=== PATIENT | female | born 1980 ===

== ENCOUNTER → 2021-10-05 13:50 | Outpatient (BNVA) | payer OTHER, SELFPAY | PROVIDERS: PCP Internal Medicine; Visit Provider Physician Assistant Surgical | DX: Z13.89 Encounter for screening for other disorder (principal) ==

== ENCOUNTER → 2021-10-11 08:30 | Outpatient (BNVA) | payer OTHER, SELFPAY | PROVIDERS: PCP Internal Medicine; Referring Provider Internal Medicine; Visit Provider Physician Assistant Surgical | DX: E66.01 Morbid (severe) obesity due to excess calories (principal); Z68.41 Body mass index [BMI] 40.0-44.9, adult | CPT/HCPCS: 99202 ==

== ENCOUNTER 2021-10-12 15:34 | Outpatient (REF) | payer OTHER, SELFPAY ==
[2021-10-14 14:57] LABS: H Pylori Breath Test Negative (Negative)
== END 2021-10-12 15:35 | disposition home or self-care (01) ==
LOC: CF 15:34
PROVIDERS: PCP Internal Medicine; Referring Provider Internal Medicine; Visit Provider Physician Assistant Surgical
DX: E66.01 Morbid (severe) obesity due to excess calories (principal)
CPT/HCPCS: 36415; 83013

== ENCOUNTER → 2021-10-19 12:37 | Outpatient (REF) | payer OTHER, SELFPAY ==
--- NOTE | ~2021-10-19 | XR_ITS ---
EXAMINATION: XR CHEST CLINICAL INFORMATION: Obese. COMPARISON: None TECHNIQUE: 2 views of the chest were obtained. FINDINGS: No significant abnormality is noted involving the heart, lungs, mediastinum, bony thorax or soft tissues. XR/XR chest 2V IMPRESSION: Unremarkable examination.
--- NOTE | 2021-10-19 12:48 | ECG_ITS ---
Test Reason : obesity Blood Pressure : / mmHG Vent. Rate : 068 BPM Atrial Rate : 068 BPM P-R Int : 144 ms QRS Dur : 082 ms QT Int : 398 ms P-R-T Axes : 017 019 021 degrees QTc Int : 423 ms Normal sinus rhythm Normal ECG No previous ECGs available Referred By: Wisam Smith Electronically Signed By:ELSA ALMANZA MD
[2021-10-19 13:02] LABS: MANUAL DIFF FLAG NO
[2021-10-19 13:29] LABS: Basophils Percent Auto 0.2 % (0-2); Eosinophils Absolute Auto 0.2 X10*3/uL (0.0-0.4); Eosinophils Percent Auto 2.3 % (0-4); Hematocrit 38.7 % (37.0-47.0); Hemoglobin 12.2 g/dl (12.0-16.0); Imm Gran Abs Auto 0.02 X10*3/uL (0.00-0.03); Imm Gran Pct Auto 0.2 % (0.0-0.4); Lymphocytes Absolute Auto 2.5 X10*3/uL (1.2-4.9); Lymphocytes Percent Auto 30.2 % (20-40); Mean Corpuscular HGB Conc 31.5 g/dl (31.0-35.0); Mean Corpuscular Hemoglobin 25.2 pg (27.0-33.0); Monocytes Absolute Auto 0.8 X10*3/uL (0.1-1.2); Monocytes Percent Auto 9.3 % (2-11); Neutrophils Absolute Auto 4.8 x10*3/uL (2.0-8.3); Neutrophils Percent Auto 57.8 % (45-73); Platelet Count 246 X10*3/uL (160-400); Red Blood Count 4.84 X10*6/uL (4.20-5.50); Red Cell Distribution Width 13.5 % (11.0-16.0); White Blood Count 8.2 X10*3/uL (4.8-10.8)
[2021-10-19 13:53] LABS: Estimated Average Glucose 111 mg/dL; Hemoglobin A1c % 5.5 %
[2021-10-19 14:03] LABS: Alanine Aminotransferase 19 U/L (0-31); Alkaline Phosphatase 115 U/L (39-117); Anion Gap 13 (12-20); Aspartate Amino Transferase 19 U/L (5-31); Bilirubin Total 0.8 mg/dL (0.0-1.0); Blood Urea Nitrogen 11 mg/dL (9-16); C Reactive Protein 1.33 mg/dL (< or = 0.50); Calcium 9.5 mg/dL (8.4-10.2); Carbon Dioxide 27 mmol/L (22-29); Chloride 104 mmol/L (96-108); Cholesterol 174 mg/dL; Estimated Glomerular Filt Rate > 60; Glucose Random 84 mg/dL (60-115); HDL Cholesterol 43 mg/dL; Iron 77 mcg/dL (30-160); LDL Cholesterol Calculated 113 mg/dl; Percent Iron Saturation 22 % (15-50); Potassium 3.7 mmol/L (3.3-5.1); Sodium 140 mmol/L (135-145); Total Iron Binding Capacity 346 mcg/dL (228-428); Total Protein 7.6 g/dL (6.5-8.0); Triglycerides 91 mg/dL; Unsaturated Iron Binding 269 ug/dL
[2021-10-19 14:16] LABS: Ferritin 54 ng/mL (10-250); Insulin 14 uU/mL (2-29); TSH reflex Free T4 1.87 uIU/mL (0.32-4.0); Vitamin D 25-OH Total 11.5 ng/mL (>30)
[2021-10-19 14:29] LABS: Folate 16.8 ng/mL (> or = 4.0); Vitamin B12 301 pg/mL (200-900)
[2021-10-20 12:11] LABS: Calcium (PTHI) 9.4 mg/dL (8.6-10.2); PTHI 54 pg/mL (16-77)
[2021-10-23 20:22] LABS: Zinc 68 mcg/dL (60-130)
[2021-10-25 01:52] LABS: Vitamin A 42 mcg/dL (38-98)
[2021-10-25 06:08] LABS: Vitamin B1 9 nmol/L (8-30)
== END ==
LOC: HO.CARD 12:37
PROVIDERS: Visit Provider Physician Assistant Surgical
DX: E66.01 Morbid (severe) obesity due to excess calories (principal)
CPT/HCPCS: 36415; 71046; 80053; 80061; 82306; 82607; 82728; 82746; 83036; 83525; 83540; 83970; 84425; 84443; 84590; 84630; 85025; 86140; 93005

== ENCOUNTER → 2021-10-24 16:00 | Outpatient (BNVA) | payer OTHER, SELFPAY | PROVIDERS: PCP Internal Medicine; Visit Provider Counselor Mental Health | DX: F43.20 Adjustment disorder, unspecified (principal); E66.01 Morbid (severe) obesity due to excess calories | CPT/HCPCS: 90791 ==

== ENCOUNTER → 2021-11-17 08:47 | Outpatient (BNVA) | payer OTHER, SELFPAY | PROVIDERS: PCP Internal Medicine; Visit Provider Dietitian, Registered | DX: E66.01 Morbid (severe) obesity due to excess calories (principal) | CPT/HCPCS: 97802 ==

== ENCOUNTER → 2021-11-22 14:01 | Outpatient (BNVA) | payer OTHER, SELFPAY | PROVIDERS: PCP Internal Medicine; Referring Provider Surgery; Visit Provider Physician Assistant Surgical | DX: E66.9 Obesity, unspecified (principal); Z68.39 Body mass index [BMI] 39.0-39.9, adult | CPT/HCPCS: 99212 ==

== ENCOUNTER 2021-11-28 08:54 | Outpatient (REF) | payer OTHER, SELFPAY ==
--- NOTE | ~2021-11-28 | US_ITS ---
EXAMINATION: US COMPLETE WITH LIVER ELASTOGRAPHY CLINICAL INFORMATION: Severe obesity due to excess calories. COMPARISON: None. TECHNIQUE: Real-time imaging of the abdominal viscera. Noninvasive ultrasound liver fibrosis assessment is performed using Hermilo ElastPQ point quantification shear wave elastography (2D-SWE) with a C5-2 MHz transducer. Multiple elastography samples are obtained. FINDINGS: PANCREAS: Normal. The visualized pancreatic head and body are normal in appearance. The remainder of the pancreas is obscured from visualization by the overlying bowel gas. ABDOMINAL AORTA: The proximal, middle, and distal aortic segments are normal in caliber. INFERIOR VENA CAVA: Visualized portions are normal. LIVER: The liver demonstrates normal size, contour and increased echogenicity. No focal lesion or intrahepatic biliary duct dilatation. The right lobe measures 12.5 cm in length. The left lobe measures 9.4 cm in length. Portal flow is hepatopedal. Shear wave liver elastography median stiffness is 1.39 m/s (reference: normal median stiffness is 1.3 m/s or less). IQR/median stiffness to assess sampling precision is 0.15 (reference: good quality data set is IQR/median stiffness of 0.15 or less). GALLBLADDER: Gallbladder wall thickness is 0.2 cm The gallbladder is physiologically distended without evidence of stones, sludge, polyps, wall thickening or pericholecystic fluid. COMMON BILE DUCT: Normal in caliber measuring 0.2 cm in diameter. RIGHT KIDNEY: Normal. No hydronephrosis. No renal calculi or focal parenchymal lesions. The kidney measures 11.7 cm in maximum dimension. LEFT KIDNEY: Normal. No hydronephrosis. No renal calculi or focal parenchymal lesions. The kidney measures 11.3 cm in maximum dimension. SPLEEN: Normal. The spleen measures 9.8 cm in maximum dimension. FREE FLUID: None. US/US abdomen comp w elastography IMPRESSION: 1. Mild hepatic steatosis without focal lesion. 2. Liver elastography: Median liver stiffness measures 1.39 m/s which corresponds to cACLD (ruled out). 3. Rest of the abdominal ultrasound is unremarkable. REFERENCE: Society of Radiologists in Ultrasound Liver Stiffness Thresholds (2020): LIVER STIFFNESS THRESHOLDS: *Liver Stiffness equal or less than 1.3 m/s: High probability of being normal. *Liver Stiffness less than 1.7 m/s: In the absence of other known clinical signs, rules out compensated advanced chronic liver disease. *Liver Stiffness 1.7-2.1 m/s: Suggestive of compensated advanced chronic liver disease but need further test for confirmation. *Liver Stiffness over 2.1 m/s: Rules in compensated advanced chronic liver disease. *Liver Stiffness over 2.4 m/s: Suggestive of clinically significant portal hypertension. QUALITY OF DATA SET: *IQR/Median value equal or less than 0.15 implies a quality data set. *IQR/Median value over 0.15 implies a poor quality data set. SIGNIFICANT CHANGE FROM PRIOR EXAM: Significant change if liver stiffness measurement is 10% or greater from prior exam. OTHER CONSIDERATIONS: The stage of liver fibrosis may be overestimated in the setting of acute hepatitis, liver inflammation, elevated liver function tests, hepatic vascular congestion, obstructive cholestasis, non-fasting state, and infiltrative diseases such as amyloidosis and lymphoma. In some patients with NAFLD, the liver stiffness thresholds for compensated advanced chronic liver disease may be lower. In causes other than viral hepatitis and NAFLD, liver stiffness thresholds are not well established.
--- NOTE | ~2021-11-28 | FL_ITS ---
EXAMINATION: XR FLUOROSCOPY UPPER GI WITH AIR CLINICAL INFORMATION: Obesity COMPARISON: None TECHNIQUE: Upper GI was performed using thin and thick barium and effervescent granules FINDINGS: Esophageal motility is normal. No hernia or reflux is seen. The stomach and duodenum are normal-appearing. No fold thickening, mass, ulcer or stricture is seen. FLUOROSCOPY TIME: 0.4 minutes DOSE AREA PRODUCT: 5 mott per centimeter squared. 16 saved fluoroscopic images. FL/FL upper GI w air IMPRESSION: Unremarkable examination.
== END 2021-11-28 08:55 | disposition home or self-care (01) ==
LOC: HO.US 08:54
PROVIDERS: Visit Provider Surgery
DX: E66.01 Morbid (severe) obesity due to excess calories (principal)
CPT/HCPCS: 74246; 76705; 76981

== ENCOUNTER → 2021-12-13 14:31 | Outpatient (BNVA) | payer OTHER, SELFPAY | PROVIDERS: PCP Internal Medicine; Referring Provider Internal Medicine; Visit Provider Physician Assistant Surgical | DX: E66.9 Obesity, unspecified (principal); Z68.38 Body mass index [BMI] 38.0-38.9, adult | CPT/HCPCS: 99212 ==

== ENCOUNTER 2022-01-09 13:36 | Outpatient (REF) | payer OTHER, SELFPAY ==
[2022-01-09 14:00] LABS: MANUAL DIFF FLAG NO
[2022-01-09 15:21] LABS: INTERNATIONAL NORM RATIO 1.1 (0.9-1.1); Prothrombin Time 12.2 SEC (10.0-13.1)
[2022-01-09 15:22] LABS: Basophils Percent Auto 0.5 % (0-2); Eosinophils Absolute Auto 0.2 X10*3/uL (0.0-0.4); Eosinophils Percent Auto 2.1 % (0-4); Hematocrit 38.5 % (37.0-47.0); Hemoglobin 12.2 g/dl (12.0-16.0); Imm Gran Abs Auto 0.02 X10*3/uL (0.00-0.03); Imm Gran Pct Auto 0.3 % (0.0-0.4); Lymphocytes Absolute Auto 2.5 X10*3/uL (1.2-4.9); Lymphocytes Percent Auto 31.7 % (20-40); Mean Corpuscular HGB Conc 31.7 g/dl (31.0-35.0); Mean Corpuscular Hemoglobin 25.6 pg (27.0-33.0); Mean Corpuscular Volume 80.7 fL (80.0-98.0); Mean Platelet Volume 9.8 fL (9.4-12.3); Monocytes Absolute Auto 0.8 X10*3/uL (0.1-1.2); Monocytes Percent Auto 10.4 % (2-11); Neutrophils Absolute Auto 4.3 x10*3/uL (2.0-8.3); Platelet Count 250 X10*3/uL (160-400); Red Blood Count 4.77 X10*6/uL (4.20-5.50); Red Cell Distribution Width 13.3 % (11.0-16.0); White Blood Count 7.8 X10*3/uL (4.8-10.8)
[2022-01-09 15:24] LABS: Partial Thromboplastin Time 36.8 SEC (26.0-36.4)
[2022-01-09 15:27] LABS: Estimated Average Glucose 105 mg/dL; Hemoglobin A1c % 5.3 %
[2022-01-09 15:40] LABS: Alanine Aminotransferase 18 U/L (0-31); Alkaline Phosphatase 102 U/L (39-117); Anion Gap 15 (12-20); Aspartate Amino Transferase 17 U/L (5-31); Blood Urea Nitrogen 12 mg/dL (9-16); C Reactive Protein 1.23 mg/dL (< or = 0.50); Calcium 9.2 mg/dL (8.4-10.2); Carbon Dioxide 28 mmol/L (22-29); Chloride 102 mmol/L (96-108); Cholesterol 154 mg/dL; Estimated Glomerular Filt Rate > 60; Glucose Random 70 mg/dL (60-115); HDL Cholesterol 41 mg/dL; LDL Cholesterol Calculated 96 mg/dl; Sodium 141 mmol/L (135-145); Total Protein 7.5 g/dL (6.5-8.0); Triglycerides 89 mg/dL
[2022-01-09 16:00] LABS: Insulin 9 uU/mL (2-29); TSH reflex Free T4 1.83 uIU/mL (0.32-4.0)
== END 2022-01-09 13:37 | disposition home or self-care (01) ==
LOC: HO.LAB 13:36
PROVIDERS: PCP Internal Medicine; Visit Provider Surgery
DX: E66.9 Obesity, unspecified (principal); Z68.38 Body mass index [BMI] 38.0-38.9, adult
CPT/HCPCS: 36415; 80053; 80061; 83036; 83525; 84443; 85025; 85610; 85730; 86140

== ENCOUNTER 2022-01-16 10:08 | Inpatient (IN) | payer OTHER, SELFPAY ==
[2022-01-12 09:19] VITALS: BMI 36.9
--- NOTE | 2022-01-13 14:10 | MHC.SHP ---
Pre-Procedural Eval Section A Date of Service: 01/13/22 The patient is an INPATIENT: Yes The History & Physical has been completed within 30 days and I have reviewed it.: Yes Section B Chief Complaint: obesity Relevant Family History (Specify if Yes): No Relevant Social History: None Present Medications: None Medical History: No relevant PMH History of Previous Operations: No relevant previous surgery Allergies: Allergies Allergy/AdvReac Type Severity Reaction Status Date / Time No Known Allergies Allergy Verified 01/12/22 09:11 Review of Systems Sugical H&P ROS: Negative: Constitution, Cardiovascular, Respiratory, Neurological, Psychiatric, Hem-Onc, Allergic/Immunologic, Gastrointestinal, Genitourinary, Musculoskeletal, Integumentary, Endocrine and Eyes/Ears/Nose/Throat Exam Surgical H&P Exam: Normal: HEENT, Normal: Heart, Normal: Lungs, Normal: Extremities, Normal: Abdomen, Normal: Skin and Normal: Neurological Plan Diagnosis/Plan: Unchanged I have reviewed the history and physical and performed a pertinent physical examination on my patient. No changes have occurred unless specified.
[2022-01-15 14:15] LABS: COVID-19 Test Negative (Negative)
[2022-01-16] VITALS (11 sets, daily range): BP systolic 118–159; BP diastolic 69–89; PULSE 64–76; RESP 15–19; TEMP 36.1–36.6; O2SAT 96–99
[2022-01-16] MEDS: Lactated Ringers 1,000 ML 999 ML IV (11:46)
--- NOTE | 2022-01-16 12:29 | P.CONAN_ITS ---
[facility] Active Problems Active Problems: All Active Problems (Updated 01/12/22 @ 09:23 by Crystal Dowell RN) Morbid obesity (Acute) Adjustment disorder (Acute) Vitamin B12 deficiency (Acute) Obese (Acute) BMI 38.0-38.9,adult (Acute) Past Medical History Medical History (Updated 01/12/22 @ 09:23 by Crystal Dowell RN) History of COVID-19 No pertinent past medical history Family History Family History Mother No problems noted. Father No problems noted. Brother No problems noted. Brother No problems noted. Sister No problems noted. Sister No problems noted. Sister No problems noted. Sister No problems noted. Sister Breast cancer Daughter No problems noted. Daughter No problems noted. Daughter No problems noted. Daughter No problems noted. Son No problems noted. Family history of problems with anesthesia: No Surgical History Surgical History Hx of tubal ligation History of Problems with Anesthesia: No Social History Social History Are you a primary healthcare account manager to a significant other at home: No Do you presently have visiting nurse or other home services: No Alcohol intake: never Patient Tobacco Use Status: Never used Tobacco Second Hand Smoke Exposure: No Use of substances other than those prescribed or required for medical reasons: No Have you been hit, kicked, punched, or otherwise hurt by someone within the past year? If so, by whom?: No Are you DNR?: No Advance Directives: No Advance Directives Information Provided: Yes (Given w/ pre-op instructions) Advance Directives on File: No Recently lost weight without trying: No How much weight loss: 24-33 pounds Eating poorly because of decreased appetite: No Nutrition screen score: 3 Nutrition Risks: No Nutritional Risk Patient : No FDLMP: 12/11/21 : No Poor oral hygiene: No (Intact teeth) Meds Allergies Allergy/AdvReac Type Severity Reaction Status Date / Time No Known Allergies Allergy Verified 01/12/22 09:11 Active Medications: Current Medications Lactated Ringer's (Lr) 1,000 mls @ 50 mls/hr IVCONT .Q20H RODGER Exam Exam Date and Time: January 16, 2022 1229 Height,Weight and Vital Signs: Height 5 ft 7 in Weight 107.048 kg Last Vital Signs Temp 97.5 F 01/16/22 11:22 Pulse 73 01/16/22 11:22 Resp 16 01/16/22 11:22 BP 118/69 01/16/22 11:22 Pulse Ox 96 01/16/22 11:22 O2 Del Method 01/16/22 11:22 Pertinent Lab Results Pertinent Lab Results: Laboratory Tests 01/09/22 01/15/22 13:51 13:30 COVID-19 ([facility]ANI) Negative COVID-19 Clin Com See Note Blood Type O Positive Antibody Screen NEGATIVE Airway Mallampati Class: II TM Dist: >3cm Neck ROM: Full Assessment and Plan Assessment Anesthesia Assessment: Anesthesia Plan Discussed and Chart Reviewed Final Anesthetic Review Family History of Problems with Anesthesia: No History of Problems with Anesthesia: No NPO: Yes ASA Class: III Final Preanesthetic Review: No Changes in Pt Med Stat, Meds/Allgs Chart Reviewed, Consent Obtained/Reviewed and Anes Risks/Benef Reviewed Patient Risk: Intermediate Procedure Risk: Intermediate Anesthetic Plan Anesthetic Plan: GA Disposition: Standard PACU
--- NOTE | 2022-01-16 12:43 | PM.DS ---
DS: Providers Provider Date of Service: 01/17/22 Date of admission: 01/16/22 10:08 Primary care physician: Lyubov Hall MD DS: Summary Hospital Course Hospital Course: ADMITTING DIAGNOSIS: morbid obesity DISCHARGE DIAGNOSIS: same, s/p laparoscopic sleeve gastrectomy PAST SURGICAL HISTORY: PROCEDURE: upper endoscopy, laparoscopic sleeve gastrectomy DISCHARGE SUMMARY: History of Present Illness: The patient is a 41 year-old woman with a BMI of 42.0 kg/m2 and associated co-morbidities as described above. The patient had extensive work-up,lost 24.6lbs preoperatively and was electively scheduled for laparoscopic, possible open sleeve gastrectomy and gastropexy. Risks and complications of the surgery were discussed with the patient in advance, particularly the possibility of , pulmonary embolism, anastomotic leak, bleeding, bowel injury, GERD, cardiac, renal or pulmonary complications. The patient understood all the risks and was in agreement with the surgical plan. Hospital Course: The patient underwent an uneventful laparoscopic sleeve gastrectomy with gastropexy on the day of admission. Postoperatively, the patient was transferred to the surgical floor. The patient received IV Acetaminophen and IV dilaudid for pain control. Patient was started on bariatric phase 1 diet POD #0. On postoperative day one, the patient was feeling well without nausea, vomiting, fevers, or tachycardia. The patient had some mild incisional pain and the abdomen was soft. On the morning of postoperative day one, the patient was continued on 1 ounce of water or ice every half hour. During the day, the patient did fairly well, having some incisional pain, but able to ambulate adequately and to tolerate liquids well. Since the patient is doing well, we decided that the patient was ready to be discharged. The patient was given instructions to follow-up with me next week and to call my office for any fever over 101, persistent abdominal pain, nausea, vomiting, GERD, symptoms of DVT such as calf tenderness, or leg swelling, or pulmonary embolism such as chest pain or shortness of breath. The patient was also instructed to drink 40-60 ounces of liquids per day using the 1-ounce cups. The patient had been given prescriptions for Tylenol for pain, Zofran prn for nausea, and pantoprazole and carafate previously. The patient was encouraged to ambulate and use the incentive spirometer. The patient was allowed to shower, but no baths, and encouraged to stay active at home. All of these instructions were given to the patient personally. All questions were answered and the patient understood all instructions, the instructions were also given to the patient in print. Time Spent with Patient Time attestation: Total time spent providing and/or coordinating discharge services: Discharge coordination time: Less than 30 minutes Quality: Safe Use of Opioids Does Pt have an Active Cancer Diagnosis on the Problem List?: No Quality: Stroke Does the patient have a stroke diagnosis?: No Physical Exam Vital Signs: Vital Signs: Last Vital Signs Temp 97.5 F 01/16/22 11:22 Pulse 73 01/16/22 11:22 Resp 16 01/16/22 11:22 BP 118/69 01/16/22 11:22 Pulse Ox 96 01/16/22 11:22 O2 Del Method 01/16/22 11:22 BMI result Body Mass Index 36.9 DS: Data Data Completed and Pending Labs on day of discharge: Laboratory Results - last 24 hr 01/15/22 13:30 COVID-19 ([facility]ANI) Negative COVID-19 Clin Com See Note Discharge Plan Discharge Anticipated Discharge Date/Time: 01/17/22 10:56 Patient Disposition: Home, Self-Care Discharge Diagnosis: s/p sleeve gastrectomy Referrals: Lyubov Hall MD [Primary Care Provider] - 1 Week Discharge Medications: Continued pantoprazole 40 mg tablet,delayed release (DR/EC) 40 mg PO DAILY Qty: 30 2RF sucralfate 100 mg/mL suspension 10 ml PO BID Qty: 400 2RF ondansetron HCl 4 mg tablet 4 mg PO Q12H Qty: 20 0RF Discontinued cholecalciferol (vitamin D3) 125 mcg (5,000 unit) capsule 125 mcg PO DAILY Qty: 30 2RF polyethylene glycol 3350 [Miralax] 17 gram powder in packet 17 g PO DAILY Qty: 14 0RF Rx Instructions: Do 7 packets, mixing each one with 8oz of water on 01/14/22 and another 7 packets on 01/15/22 mecobalamin (vitamin B12) 1,000 mcg tablet,disintegrating 1,000 mcg sublingual DAILY Qty: 30 2RF Rx Instructions: place tablet under tongue and allow to dissolve for at least30 secs before swallowing Discharge Orders: Discharge Order (Routine); Ordered 01/17/22 Ordered By: Aubrey Lechuga Activity on Discharge: No heavy lifting Stand Alone Forms: Patient Portal Discharge page Care Plan Goals: weight loss Health Concerns: obesity Plan of Treatment: No tub baths, sex or returning to work until discussed at first post op appointment. No exercise, alcohol, tobacco or illegal drug use. Continue to use incentive spirometer hourly while awake. Walk in home for 5- 10 minutes every 2 hours during the first week. Continue phase 1 diet today and start phase 2 diet tomorrow morning. Follow all instructions in the bariatric handbook and call with any questions. 1. Please call your doctor or come back to the emergency room should any new symptoms arise. 2. You will receive a courtesy call from [facility] 24-48 hours after discharge. 3. Activity: abstain from alcohol, practice limited stair climbing, no bending, no driving, no exercise, no illicit substances, no lifting, no sex, no tub bath, no work. 4. Diet: continue as discussed with bariatric team.. 5. Dressing Change/Wound Care: Do not change or remove surgical dressings unless they are wet or soiled. 6. Call your doctor if: - Your temperature exceeds 101.5 F - You experience excessive pain or swelling - You have an unexpected reaction to medication - You have excessive bleeding - You experience continued vomiting/nausea - Your incision begins to separate - Your incision shows signs of infection such as increased redness, swelling, excessive pain, heat, or drainage (light blood or clear fluid is normal) 7. General instructions: No lifting greater than 5 lbs for the next 4 weeks[address] within 24 hours of taking narcotic pain medications. If you do not move your bowels in the next 2 days, please take milk of magnesia over the counter. Please follow the post op diet and do not advance your diet until you are seen in the office in about 2 weeks. Please walk around your home every hour or two to prevent blood clots from forming in your legs. You do not need to wake from sleeping to walk. Please sleep in a bed or couch to prevent kinking at the hips and knees. Please take your incentive spirometer (your lung surveillance director) home with you and use it for the next few days to prevent pneumonias. You may shower, no hot tubs, baths or swimming pools. Please call the office with any questions or concerns such as increasing abdominal pain, fever, chills, shortness of breath, chest pain, leg pain or swelling, or redness or drainage from your incisions. Do not hesitate to contact the office with any questions at . The patient's medical history has been reviewed and they are considered low risk for post op DVT and therefore DVT prophylaxis is not considered necessary. Travel after surgery was reviewed. The patient has not disclosed any travel plans during the first 30 days after surgery and they have been advised that within the first 30 days after surgery any bus, plane, train or car travel over 2 hours in duration is contraindicated due to the possibility of developing blood clots from immobility. Any travel, needs to include periods of ambulation of 10 minutes in duration every 2 hours. The patient was instructed to discuss any plans for travel during this period with their bariatric surgeon. Assessment: stable post op sleeve gastrectomy Discharge Date/Time: 01/17/22 09:22
--- NOTE | 2022-01-16 12:46 | PM.OP ---
Brief Operative Note Date of Service: 01/16/22 Pre-op diagnosis: Severe obesity with comorbidities (see below) Post-op diagnosis: same Procedure: INITIAL PATIENT BMI ON PRESENTATION AT OUR OFFICE: 42.2 kg/m2 LAST BMI BEFORE SURGERY: 38.5 kg/m2 COMORBIDITIES: liver steatosis and liver fibrosis ?The patient presented to the Weight Management Program with significant obesity that was negatively impacting the patient's comorbidities as listed above.? The program is a phased program with a special focus on preoperative medical weight management to promote substantial weight loss and prepare the patients for the second phase of the program: bariatric surgery. The patient participated in an intensive weekly lifestyle ?intervention and exercise program during which the patient ?has lost between the initial office visit and the last preoperative visit 24.6lbs, or 9.42% of initial actual body weight. It was deemed appropriate for the patient to now have bariatric surgery. In light of the current Covid-19 pandemic and the well documented strong association of obesity and increased risk of worse outcomes if infected with Covid-19 (REFERENCES:https://pubmed.ncbi.nlm.nih.gov/49010021/,?https://pubmed.ncbi.nlm.nih.gov/38849399/), any delay in undergoing bariatric surgery may lead to the patient's worsening health condition and increased?risk of more severe Covid-19 disease if infected. In addition a recent?study from [facility] published in [facility] on 05/15/2021 ([email or web address]) found that, among patients with obesity, substantial weight loss achieved with surgery was associated with improved outcomes of COVID-19 infection. The findings suggest that obesity can be a modifiable risk factor for the severity of COVID-19 infection. In addition, the patient met the BMI-criteria for bariatric surgery based on the BMI on initial presentation. The patient should not be penalized for achieving such weight loss because ?it is not sustainable long-term without surgical intervention and it was achieved in preparation for bariatric surgery ?under my direction and based on my published research ([email or web address]).[email or web address] and?[email or web address]://www.soard.org/article/[email or web address]-[email or web address]/pdf) ?that a 10% preoperative weight loss improves long-term weight loss after surgery and reduces perioperative complications.? Insurance carriers such as [facility] have endorsed my recommendations ?and have included in their policies criteria to include a 10% preoperative weight loss requirement. PROCEDURE: Esophago-gastroscopy, laparoscopic lysis of adhesions, laparoscopic sleeve gastrectomy and laparoscopic gastropexy INDICATIONS: This is a 41 year-old female who was electively scheduled for laparoscopic, possibly open sleeve gastrectomy. The risks and complications of the procedure were discussed with the patient in advance, particularly the possibility of ; pulmonary embolism; staple line leak; bleeding; GERD; cardiac, pulmonary, or renal complications; as well as long-term problems such as insufficient weight loss, vitamin deficiency, strictures, or ulcers. The patient understood all the risks, and was in agreement to proceed with surgery. DESCRIPTION OF PROCEDURE: After informed consent was obtained from the patient, the patient was given preoperative antibiotics, and was transferred to the operating room. After successful induction of general anesthesia, pneumatic compression devices were placed on both lower extremities. An upper endoscopy was performed next. The oropharynx and esophagus appeared to be within normal limits. There was no diaphragmatic hernia present consistent with the UGI. The stomach was fully decompressed, the scope was withdrawn and secured in the mid esophagus. The patient was then prepped and draped in the usual sterile manner, and abdominal access was established at the right upper quadrant with the Mikel technique. A 12 mm blunt port was inserted, and the abdomen was insufflated with CO2 to a pressure of 15 mmHg. Under direct visualization, additional ports were placed, specifically two 5 mm Versi-step ports to the left upper quadrant, and a 5 mm Versi-Step port to the right upper quadrant. 1% lidocaine plain was used to infiltrate all port sites as well as all fascia defects. Using the EndoClose suture passer device, I placed a #1 Polysorb tie across the falciform ligament in order to retract it up against the abdominal wall and prevent injury of the ligament with our instruments during the procedure. Following that, the patient was placed in a steep reverse Trendelenburg position. An additional 5 mm port was placed to the right flank for the Mediflex retractor that was used to retract the left lobe of the liver. The gastro-esophageal fat pad was opened with the ultrasonic device (Thunderbeat, Olympus) and the anterior esophagus and hiatus were exposed. The angle of His was opened with the ultrasonic device the fundus of the stomach from any diaphragmatic and splenic attachments. I then opened the gastrocolic ligament between the transverse colon and the greater curvature of the stomach with the ultrasonic device to enter the lesser sac and facilitate the ligation of the short gastric vessels. I started at a mid-point along the greater curvature and using the Thunderbeat, all short gastric vessels were divided all the way to the angle of His until the left michael was completely dissected at its entirety. I then divided the gastro-colic ligament distally to a distance of about 3-4 cm proximal to the pylorus. There were extensive congenital adhesions between the pancreas and posterior gastric wall. Those were lysed completely with the ultrasonic device. Adhesiolysis took approximately 45 min to complete. The stomach was then divided transversely with one Endo CARYN-45 purple, one CARYN-60 purple load and three CARYN-60 articulating orange loads using the AEON stapler and loads. Every effort was made that the gastric sleeve had a tubular shape and an even caliber throughout. Once the sleeve resection was completed, the staple line of the gastric sleeve was reinforced with Hemoclips. The resected stomach was retrieved without difficulty from the Mikel port. A gastropexy was then performed in order to prevent postoperative GERD and partial gastric volvulus. Several interrupted 2.0 Surgidac sutures were placed between the sleeve's staple line and the previously divided greater omentum and gastro-colic ligament using the Endo-Stitch device. ?An upper endoscopy was performed. There was no narrowing at the GE junction. The scope was easily advanced all the way to the pylorus which was clearly visualized. There was no narrowing anywhere and the sleeve's caliber was even throughout. The sleeve's staple line was inspected and there was no evidence of ischemia, bleeding or dehiscence. At that point the gastroscope was withdrawn from the patient?s mouth while we were decompressing the bowel and the stomach from any remaining air. I looked into the lesser sac to see how the sleeve was situating and it was situating well. There was no bleeding from the staple line, spleen, or short gastric vessels. The Mediflex retractor was removed, and the undersurface of the liver was inspected and there was no bleeding. The patient was placed in supine position. I closed the fascial defect of the 12 mm port site with a figure of eight #1 Polysorb suture. Then 60cc of Ropivacaine plain with 10 mg of Dexamethasone were used to infiltrate the fascial closure as well as all skin incisions. A total of 7ml of Zynrelef was applied in the Mikel wound. At this point, the abdomen was deflated, all ports were removed under direct vision, and no bleeding was noted from any of the port sites. The skin incisions were irrigated with saline and were closed with 4-0 absorbable monofilament sutures. Steri-Strips and OpSites were used to cover all incisions. The patient was extubated and was transferred in stable condition to the recovery room for further care. I was present and performed all thorpe parts of the procedure. Ms. Alvares was the medical lab assistant. There were no residents to assist with this case. Hector Lechuga MD, PhD, FACS Surgeon: Aubrey Lechuga MD Anesthesia: GETA, local and other (TAP block and 7ml Zynrelef) Was an Regional Transfer Liaison used for this Procedure?: No Regional Transfer Liaison: Nanette Alvares Estimated blood loss (mL): 10 IV fluids (mL): 3,000 Urine output (mL): 0 (No Lara to record) Pathology: other (Stomach) Condition: stable Disposition: PACU
--- NOTE | 2022-01-16 12:49 | PM.PNGS ---
Subjective Subjective Date of Service: 01/17/22 Interval history: Patient has mild incisional pain, but was able to ambulate and use the incentive spirometer. She is tolerating phase 1 bariatric diet Physical Exam Vital Signs: Vital Signs: Last Vital Signs Temp 97.5 F 01/16/22 11:22 Pulse 73 01/16/22 11:22 Resp 16 01/16/22 11:22 BP 118/69 01/16/22 11:22 Pulse Ox 96 01/16/22 11:22 O2 Del Method 01/16/22 11:22 BMI result Body Mass Index 36.9 GI: Inspection: Yes normal to inspection, Yes incision (dry, clean and intact) and Yes obesity Extrem: Right lower extremity: normal to inspection (no calf tenderness) Left lower extremity: normal to inspection (no calf tenderness) Objective Data Active Medications Hydromorphone HCl (Hydromorphone Hcl 0.5 Mg/0.5 Ml Syringe) 0.5 mg IVPUSH Q5M PRN; Protocol PRN Reason: Pain, Severe (Pain Scale 7-10) Lactated Ringer's (Lr) 1,000 mls @ 50 mls/hr IVCONT .Q20H RODGER Promethazine HCl 12.5 mg/ (Sodium Chloride) 50.5 mls @ 202 mls/hr IV ONCE PRN PRN Reason: Nausea and Vomiting Ondansetron HCl (Ondansetron Hcl 4 Mg/2 Ml Vial) 4 mg IVPUSH ONCE PRN PRN Reason: Nausea and Vomiting Labs CBC & Chem 7: 01/17/22 06:06 01/17/22 06:06 Labs: Laboratory Results - last 24 hr 01/15/22 13:30 COVID-19 (JANI) Negative COVID-19 Clin Com See Note Procedures Date of Service Date of Service: 01/17/22 Progress Note: A&P Assessment and plan (1) Steatosis, liver: Status: Acute (2) Liver fibrosis: Status: Acute (3) S/P laparoscopic sleeve gastrectomy: Status: Acute (4) Congenital intra-abdominal adhesions: Status: Acute Time Spent With Patient Time: Total time spent is greater than 50% in coordination of care (as documented) at patient's floor/unit and/or counseling patient: Quality Stroke Does the patient have a stroke diagnosis?: No VTE Prior VTE?: No VTE Risk Level:: Surgical - moderate VTE Device Contraindication: N/A - Device Ordered VTE Drug Contraindication: Treatment Not Indicated
--- NOTE | 2022-01-16 15:51 | PHA.MEDREC ---
Pharmacy Consult ? Medication Reconciliation Pharmacy has completed the medication reconciliation. Reviewed med rec done by nursing
[2022-01-16] MEDS: HYDROmorphone HCl 0.5 MG/0.5 ML SYRINGE IVPUSH (15:56)
[2022-01-16 15:58] LABS: Hematocrit 38.1 % (37.0-47.0); Hemoglobin 12.3 g/dl (12.0-16.0)
[2022-01-16] MEDS: Lactated Ringers 1,000 ML 100 ML IVCONT (16:04)
[2022-01-16 16:20] LABS: Anion Gap 17 (12-20); Blood Urea Nitrogen 9 mg/dL (9-16); Calcium 8.9 mg/dL (8.4-10.2); Carbon Dioxide 22 mmol/L (22-29); Chloride 104 mmol/L (96-108); Creatinine Clr Calc Pharmacy 130.7; Estimated Glomerular Filt Rate > 60; Glucose Random 99 mg/dL (60-115); Sodium 139 mmol/L (135-145)
[2022-01-16] MEDS: ceFAZolin Sodium/Dextrose,Iso 2 GM/50 ML PIGGYBACK IV (19:10)
[2022-01-16] MEDS: Famotidine/PF 20 MG/2 ML VIAL IVPUSH (20:01)
[2022-01-16] MEDS: 0.9 % Sodium Chloride Flush 3 ML SYRINGE IVFLUSH (20:01)
[2022-01-16] MEDS: ondansetron HCL 4 MG/2 ML VIAL IVPUSH (20:34)
[2022-01-17] VITALS: BP 131/84; PULSE 71; RESP 18; TEMP 36.2; O2SAT 97
[2022-01-17] MEDS: Lactated Ringers 1,000 ML 100 ML IVCONT (01:53)
[2022-01-17 03:43] VITALS: BP 133/87; PULSE 77; RESP 18; TEMP 37; O2SAT 96
[2022-01-17] MEDS: ondansetron HCL 4 MG/2 ML VIAL IVPUSH (05:19)
[2022-01-17 06:24] LABS: MANUAL DIFF FLAG NO
[2022-01-17 06:42] LABS: Anion Gap 17 (12-20); Blood Urea Nitrogen 7 mg/dL (9-16); Calcium 8.9 mg/dL (8.4-10.2); Carbon Dioxide 21 mmol/L (22-29); Chloride 103 mmol/L (96-108); Creatinine Clr Calc Pharmacy 144.8; Estimated Glomerular Filt Rate > 60; Glucose Random 103 mg/dL (60-115); Potassium 3.9 mmol/L (3.3-5.1); Sodium 137 mmol/L (135-145)
[2022-01-17 06:45] LABS: Basophils Percent Auto 0.1 % (0-2); Hematocrit 36.7 % (37.0-47.0); Hemoglobin 11.9 g/dl (12.0-16.0); Imm Gran Abs Auto 0.02 X10*3/uL (0.00-0.03); Imm Gran Pct Auto 0.3 % (0.0-0.4); Lymphocytes Absolute Auto 1.2 X10*3/uL (1.2-4.9); Lymphocytes Percent Auto 15.5 % (20-40); Mean Corpuscular HGB Conc 32.4 g/dl (31.0-35.0); Mean Corpuscular Hemoglobin 25.4 pg (27.0-33.0); Mean Corpuscular Volume 78.4 fL (80.0-98.0); Mean Platelet Volume 9.4 fL (9.4-12.3); Monocytes Absolute Auto 0.5 X10*3/uL (0.1-1.2); Monocytes Percent Auto 6.6 % (2-11); Neutrophils Percent Auto 77.5 % (45-73); Platelet Count 218 X10*3/uL (160-400); Red Blood Count 4.68 X10*6/uL (4.20-5.50); Red Cell Distribution Width 13.2 % (11.0-16.0); White Blood Count 7.7 X10*3/uL (4.8-10.8)
--- NOTE | 2022-01-17 06:54 | HO.POSTANES ---
Post Anesthesia Evaluation Post Anesthesia Evaluation Vital Signs: Vital Signs Temp Pulse Resp BP Pulse Ox O2 Del Method 01/17/22 03:43 98.6 F 77 18 133/87 96 Room Air 01/17/22 00:00 97.2 F 71 18 131/84 97 Room Air 01/16/22 20:00 64 18 121/70 99 Room Air Anesthesia: General Endotracheal-GETA Mental Status: Awake Pain Control: Satisfactory Nausea/Vomiting: None Hydration: Adequate Anesthesia-Related Issues: No Anes. Related Issues
[2022-01-17 07:16] VITALS: BP 142/61; PULSE 84; RESP 17; TEMP 37.1; O2SAT 96
[2022-01-17] MEDS: Famotidine/PF 20 MG/2 ML VIAL IVPUSH (07:29)
--- NOTE | 2022-01-17 08:47 | MHC.CM.PN ---
PATIENT LIVES WITH FAMILY [facility] [employer]ITY IS [employer]ED DENIES USE OF DME OR RECEIVING HOME SERVICES HCP EDUCATED, DECLINED AT THIS TIME JASMIN CANTOR'Eduardo X3 NOEMI PXCP FROM [facility] IN [place] WILL TRANSPORT D/C PLAN: HOME SELF-CARE
--- NOTE | 2022-01-17 08:49 | MHC.CM.PN ---
PATIENT HAS BEEN MEDICALLY CLEARED FOR DISCHARGE TODAY; DISCHARGE DISPOSITION IS HOME SELF-CARE. SPOUSE TO TRANSPORT.
== END 2022-01-17 09:22 | disposition home or self-care (01) | DRG 403 ==
LOC: HO.SSSA 12:58 → HO.S3 15:43
PROVIDERS: Physician Assistant; Physician Assistant Surgical; Admitting Provider Surgery; PCP Internal Medicine; Visit Provider Surgery
PROC: 0DB64Z3 Excision of Stomach, Percutaneous Endoscopic Approach, Vertical (ICD-10-PCS; CPT 43845; principal; 2022-01-16 13:00)
DX: E66.01 Morbid (severe) obesity due to excess calories (principal); K74.00 Hepatic fibrosis, unspecified; Q43.3 Congenital malformations of intestinal fixation; K76.0 Fatty (change of) liver, not elsewhere classified; Z20.822 Contact with and (suspected) exposure to COVID-19; Z86.16 Personal history of COVID-19; Z98.51 Tubal ligation status; Z68.38 Body mass index [BMI] 38.0-38.9, adult
CPT/HCPCS: 36415; 80048; 85014; 85018; 85025; 86850; 86900; 86901; 87635; 88307; 88342; A4649; C9088; J0131; J0690; J1100; J1170; J2250; J2405; J2795; J3010

== ENCOUNTER → 2022-02-07 09:34 | Outpatient (BNVA) | payer OTHER, SELFPAY | PROVIDERS: PCP Internal Medicine; Visit Provider Physician Assistant Surgical | DX: E66.9 Obesity, unspecified (principal); Z68.34 Body mass index [BMI] 34.0-34.9, adult; Z98.84 Bariatric surgery status | CPT/HCPCS: 99212 ==

== ENCOUNTER → 2022-03-12 13:49 | Outpatient (BNVA) | payer OTHER, SELFPAY | PROVIDERS: PCP Internal Medicine; Referring Provider Physician Assistant Surgical; Visit Provider Dietitian, Registered | DX: E66.9 Obesity, unspecified (principal); Z98.84 Bariatric surgery status; Z71.3 Dietary counseling and surveillance | CPT/HCPCS: 97803 ==

== ENCOUNTER → 2022-04-24 13:07 | Outpatient (BNVA) | payer OTHER, SELFPAY | PROVIDERS: PCP Internal Medicine; Visit Provider Physician Assistant Surgical | DX: E66.9 Obesity, unspecified (principal); Z68.30 Body mass index [BMI] 30.0-30.9, adult; Z98.84 Bariatric surgery status | CPT/HCPCS: 99212 ==

== ENCOUNTER → 2022-08-03 14:36 | Outpatient (BNVA) | payer OTHER, SELFPAY | PROVIDERS: PCP Internal Medicine; Visit Provider Physician Assistant Surgical | DX: E66.9 Obesity, unspecified (principal); Z68.28 Body mass index [BMI] 28.0-28.9, adult | CPT/HCPCS: 99212 ==

== ENCOUNTER 2022-08-09 14:58 | Outpatient (REF) | payer OTHER, SELFPAY ==
[2022-08-09 15:29] LABS: MANUAL DIFF FLAG NO
[2022-08-09 15:42] LABS: Basophils Percent Auto 0.4 % (0-2); Eosinophils Absolute Auto 0.2 X10*3/uL (0.0-0.4); Eosinophils Percent Auto 2.3 % (0-4); Hematocrit 38.1 % (37.0-47.0); Hemoglobin 12.1 g/dl (12.0-16.0); Imm Gran Abs Auto 0.02 X10*3/uL (0.00-0.03); Imm Gran Pct Auto 0.3 % (0.0-0.4); Lymphocytes Absolute Auto 2.6 X10*3/uL (1.2-4.9); Lymphocytes Percent Auto 34.4 % (20-40); Mean Corpuscular HGB Conc 31.8 g/dl (31.0-35.0); Mean Corpuscular Hemoglobin 25.9 pg (27.0-33.0); Mean Corpuscular Volume 81.6 fL (80.0-98.0); Mean Platelet Volume 8.8 fL (9.4-12.3); Monocytes Absolute Auto 0.7 X10*3/uL (0.1-1.2); Monocytes Percent Auto 8.8 % (2-11); Neutrophils Percent Auto 53.8 % (45-73); Platelet Count 202 X10*3/uL (160-400); Red Blood Count 4.67 X10*6/uL (4.20-5.50); Red Cell Distribution Width 12.7 % (11.0-16.0); White Blood Count 7.4 X10*3/uL (4.8-10.8)
[2022-08-09 16:28] LABS: Anion Gap 11 (12-20); Blood Urea Nitrogen 14 mg/dL (9-16); C Reactive Protein 0.33 mg/dL (< or = 0.50); Calcium 9.1 mg/dL (8.4-10.2); Carbon Dioxide 29 mmol/L (22-29); Chloride 106 mmol/L (96-108); Cholesterol 158 mg/dL; Estimated Glomerular Filt Rate > 60; Glucose Random 86 mg/dL (60-115); HDL Cholesterol 48 mg/dL; Iron 51 mcg/dL (30-160); LDL Cholesterol Calculated 96 mg/dl; Percent Iron Saturation 19 % (15-50); Potassium 3.8 mmol/L (3.3-5.1); Sodium 142 mmol/L (135-145); Total Iron Binding Capacity 269 mcg/dL (228-428); Triglycerides 71 mg/dL; Unsaturated Iron Binding 218 ug/dL
[2022-08-09 16:59] LABS: Ferritin 59 ng/mL (10-250); Folate 7.4 ng/mL (> or = 4.0); Insulin 9 uU/mL (2-29); Vitamin B12 316 pg/mL (200-900); Vitamin D 25-OH Total 22.8 ng/mL (>30)
[2022-08-10 16:23] LABS: Calcium (PTHI) 9.2 mg/dL (8.6-10.2); PTHI 50 pg/mL (16-77)
[2022-08-14 00:04] LABS: Zinc 55 mcg/dL (60-130)
[2022-08-15 06:08] LABS: Vitamin B1 10 nmol/L (8-30)
[2022-08-15 17:39] LABS: Vitamin A 37 mcg/dL (38-98)
== END 2022-08-09 14:59 | disposition home or self-care (01) ==
LOC: HO.LAB 14:58
PROVIDERS: Visit Provider Physician Assistant Surgical
DX: E66.9 Obesity, unspecified (principal); Z98.84 Bariatric surgery status
CPT/HCPCS: 36415; 80048; 80061; 82306; 82607; 82728; 82746; 83525; 83540; 83970; 84425; 84443; 84590; 84630; 85025; 86140

== ENCOUNTER → 2022-11-21 15:18 | Outpatient (BNVA) | payer OTHER, SELFPAY | PROVIDERS: PCP Internal Medicine; Visit Provider Physician Assistant Surgical ==

== ENCOUNTER 2022-12-25 01:03 | Inpatient (IN) | payer OTHER, SELFPAY ==
[2022-12-25] VITALS (15 sets, daily range): BP systolic 101–140; BP diastolic 48–108; PULSE 53–69; RESP 14–20; TEMP 36–36.9; O2SAT 96–100; BMI 25.5
--- NOTE | ~2022-12-25 | MR_ITS ---
EXAMINATION: MR ABDOMEN WITHOUT CONTRAST CLINICAL INFORMATION: Elevated LFTs. COMPARISON: Abdominal ultrasound 12/25/2022 CT abdomen/pelvis 12/25/2022 TECHNIQUE: MR abdomen is performed without gadolinium contrast. FINDINGS: LUNG BASES: The visualized lung bases are unremarkable. LIVER, GALLBLADDER, AND BILIARY TREE: The liver is normal in size and contour. No hepatic steatosis. No focal hepatic lesion. The common duct measures 5 mm at the bryan hepatis. No intrahepatic biliary ductal dilatation. There is fluid and stranding in the gallbladder fossa. The gallbladder is not well visualized. There is susceptibility artifact at the bryan hepatis. PANCREAS: No ductal dilatation. SPLEEN: Not enlarged. ADRENAL GLANDS: No adrenal mass. KIDNEYS AND URETERS: The kidneys are symmetric in size. No hydronephrosis or perinephric stranding. GASTROINTESTINAL TRACT: Status post sleeve gastrectomy. Imaged loops of small and large bowel are not obstructed. LYMPH NODES: No bulky abdominal lymphadenopathy. VASCULAR: Normal caliber abdominal aorta. MR/MR MRCP IMPRESSION: Fluid and stranding in the gallbladder fossa. No organized fluid collection. Susceptibility artifact at the bryan hepatis is suggestive of prior cholecystectomy. Advise correlation with surgical history.
--- NOTE | ~2022-12-25 | US_ITS ---
EXAMINATION: US ABDOMEN LIMITED gallbladder CLINICAL INFORMATION: Right upper quadrant pain. COMPARISON: Prior study 2021 TECHNIQUE: Real-time imaging of the right upper quadrant abdominal viscera. FINDINGS: GALLBLADDER: There are multiple gallstones. The gallbladder is physiologically distended without evidence of sludge, polyps, wall thickening or pericholecystic fluid. No tenderness reported by patient compressing on the gallbladder. Gallbladder wall thickness 0.3 cm. No pericholecystic fluid. COMMON BILE DUCT: Normal in caliber measuring 0.4 cm in diameter. FREE FLUID: None. US/US abdomen limited IMPRESSION: Cholelithiasis without ultrasound evidence of acute cholecystitis.
--- NOTE | ~2022-12-25 | CT_ITS ---
EXAMINATION: CT ABDOMEN AND PELVIS WITH CONTRAST CLINICAL INFORMATION: Right upper quadrant pain. COMPARISON: None available. TECHNIQUE: Multidetector volumetric images were obtained from the superior aspect of the liver through the pubic symphysis following administration 85 mL of Omnipaque 350 intravenous contrast. Sagittal and coronal reformatted images were obtained on the technologist's workstation. Oral contrast: No This CT examination was performed using dose optimization techniques as appropriate, variously including the following: *Automated exposure control *Adjustment of mA and/or kV according to patient size (this includes techniques or standardized protocols for targeted exams where dose is matched to indication/reason for exam; i.e. extremities or head) *Use of iterative reconstruction technique DLP: 499 mGy-cm FINDINGS: LUNG BASES: The visualized lung bases are unremarkable. LIVER, GALLBLADDER, AND BILIARY TREE: The liver is normal in size, shape, and attenuation. No focal hepatic lesion or biliary ductal dilatation is present. A few small gallstones are noted. PANCREAS: Unremarkable. SPLEEN: Unremarkable. ADRENAL GLANDS: Unremarkable. KIDNEYS AND URETERS: The kidneys are normal in size, shape, and attenuation. No hydronephrosis, hydroureter, or calculi seen. No perinephric stranding. BLADDER: Unremarkable. GASTROINTESTINAL TRACT: The small and large bowel are unremarkable. There has been a prior gastric sleeve procedure. The appendix is unremarkable. ABDOMINAL WALL: No significant hernia is appreciated. LYMPH NODES: Normal. VASCULAR: Unremarkable. PELVIC VISCERA: Unremarkable. OSSEOUS STRUCTURES: Unremarkable. CT/CT abdomen pelvis w IV con IMPRESSION: Cholelithiasis. No acute intra-abdominal process. Fleischner guidelines were followed.
--- NOTE | 2022-12-25 01:58 | MHC.EDTECH ---
PATIENT VITALS SIGN TAKEN ,BLOOD DRAWN AND SENT TO LAB ,WAITING FOR URINE SAMPLE ,PATIENT SAID SHE IS UNABLE TO VOID AT THIS TIME ,LORETTA HOWE AWARE .
[2022-12-25 02:04] LABS: Hematocrit 38.3 % (37.0-47.0); Hemoglobin 12.3 g/dl (12.0-16.0); Mean Corpuscular HGB Conc 32.1 g/dl (31.0-35.0); Mean Corpuscular Hemoglobin 26.1 pg (27.0-33.0); Mean Corpuscular Volume 81.1 fL (80.0-98.0); Mean Platelet Volume 8.9 fL (9.4-12.3); Platelet Count 209 X10*3/uL (160-400); Red Blood Count 4.72 X10*6/uL (4.20-5.50); Red Cell Distribution Width 12.2 % (11.0-16.0); White Blood Count 8.9 X10*3/uL (4.8-10.8)
[2022-12-25 02:15] LABS: Alanine Aminotransferase 47 U/L (0-31); Alkaline Phosphatase 106 U/L (39-117); Anion Gap 11 (12-20); Aspartate Amino Transferase 114 U/L (5-31); Blood Urea Nitrogen 15 mg/dL (9-16); Calcium 9.6 mg/dL (8.4-10.2); Carbon Dioxide 27 mmol/L (22-29); Chloride 107 mmol/L (96-108); Creatinine Clr Calc Pharmacy 103.7; Estimated Glomerular Filt Rate > 60; Glucose Random 90 mg/dL (60-115); Lipase 142 U/L (8-78); Potassium 3.5 mmol/L (3.3-5.1); Sodium 141 mmol/L (135-145); Total Protein 7.7 g/dL (6.5-8.0)
--- NOTE | 2022-12-25 02:21 | ED_ITS ---
HPI - Abdominal Pain General Chief Complaint: Abdominal Pain Stated Complaint: Gallstones Time Seen by Provider: 12/25/22 01:57 Source: patient, family and old records reviewed Mode of arrival: ambulatory Limitations: no limitations History of Present Illness HPI narrative: 42 yo female with hx of gastric sleeve dx with gallstones at [facility] last night via US told to see surgery sent home with PO morphine called Wisam Smith yeserday as she's s/p gastric sleeve one year ago. She will see Dr. Nicole on Saturday but her pain re-occured tonight after yun soup took PO morphine and didn't go away. US showed stones but no infection at [facility]. She has nausea but no vomiting. No fevers or diarrhea. MD elicited complaint: abdominal pain Pertinent past history: other (gastric sleeve) Onset (ago): day(s) (2) Pain Consistency: intermittent Location: RUQ Severity: severe Quality: stabbing Radiation: R flank Migration to: no migration Exacerbating factors: eating Relieving factors: nothing Associated symptoms: nausea Treatments prior to arrival: other (PO morphine) Related Data Home Medications Medication Instructions Recorded Confirmed Leo +D PO BID 02/23/22 11/21/22 fusion MVI PO DAILY 04/24/22 11/21/22 Allergies Allergy/AdvReac Type Severity Reaction Status Date / Time No Known Allergies Allergy Verified 08/03/22 14:42 Review of Systems Review of Systems Constitutional : No Weight loss, No Fever, No Chills ENT/Mouth : No sore throat, No Rhinorrhea Eyes: No Swelling, No Redness Cardiovascular : No Chest Pain, No SOB, NoEdema Respiratory : No Cough, No Sputum, No Wheezing Gastrointestinal : Positive Nausea, no Vomiting, no Diarrhea, positive abdominal Pain, No Hematochezia, No Melena Genitourinary : No Dysuria, No Urinary Frequency, No Hematuria, No Urgency Musculoskeletal : No joint pain, No Myalgias, No Joint Swelling Skin : No Skin Lesions, No rash Neuro : No Weakness, No Numbness, No Dizziness, No Headache Psych : No Anxiety/Panic, No Depression Heme/Lymph: No Bruising, No Lymphadenopathy Endocrine : No Polyuria, No Polydipsia All other systems reviewed and are negative. [facility] Past Medical History Attestation statement: The following information was validated with the patient. Medical History Adjustment disorder BMI 38.0-38.9,adult History of COVID-19 No pertinent past medical history Obese Vitamin B12 deficiency Surgical History Hx of tubal ligation S/P laparoscopic sleeve gastrectomy Family History Family History Mother No problems noted. Father No problems noted. Brother No problems noted. Brother No problems noted. Sister No problems noted. Sister No problems noted. Sister No problems noted. Sister No problems noted. Sister Breast cancer Daughter No problems noted. Daughter No problems noted. Daughter No problems noted. Daughter No problems noted. Son No problems noted. Social History Social History Are you a primary customer care assistant to a significant other at home: No Do you presently have visiting nurse or other home services: No Alcohol intake: never Patient Tobacco Use Status: Never used Tobacco Smoked in Last 30 Days: No Second Hand Smoke Exposure: No Use of substances other than those prescribed or required for medical reasons: No Advance Directives: No Advance Directives Information Provided: Yes Patient : No service: No Current occupational status: employed Physical Exam ED Vital Signs: Vital Signs - 24 hr 12/25/22 01:34 12/25/22 01:52 12/25/22 04:00 Temperature 98 F 97.6 F 97.6 F Pulse Rate 68 67 55 Respiratory Rate 20 16 16 Blood Pressure 115/75 117/62 101/48 L Pulse Oximetry 100 98 98 Oxygen Delivery Method Room Air Room Air Room Air 12/25/22 06:00 Temperature 97.9 F Pulse Rate 53 Respiratory Rate 16 Blood Pressure 108/66 Pulse Oximetry 98 Oxygen Delivery Method Room Air BMI result Body Mass Index 25.5 Appearance: Alert. Oriented X3. No acute distress. Eyes: Pupils equal, round and reactive to light. ENT: Pharynx normal. Neck: Normal inspection. Neck supple. CVS: Normal heart rate and rhythm. Pulses normal. Respiratory: No respiratory distress. Breath sounds normal. Abdomen: Soft and mild RUQ ttp no rebound , neg jimenez's sign. Skin: Skin warm and dry. Normal skin color. Normal skin turgor. Extremities: No lower extremity edema. No calf ttp Neuro: Oriented X 3. No motor deficit. No sensory deficit. Course Course Course Narrative: repeat calls to radiology Reevaluation(s) Reevaluation #1: 2nd dose of IV dilaudid for pain Medical Decision Making Medical Decision Making [facility] Narrative: 42 yo female hx of gastric sleeve dx with gallstones at [facility] last night via US for RUQ and R flank pain sent home with PO morphine. Started with pain for 2 hours in RUQ and R flank pain - at this time given sleeve history will obtain basic labs, CT scan for choledocholithiasis, IV dilaudid for pain, IVF - likely admit will talk to bariatric surgery after CT scan Differential Diagnosis Differential Diagnoses: The differential diagnosis associated with the presentation includes pancreatitis, renal colic, gastritis, adhesions, internal hernia, biliary colic, choledocholithiasis Admission/Observation Consideration of admission/observation: Escalation of care including admission/observation considered repeat doses of pain medications plan to admit Consult Healthcare Provider Management of the patient was discussed with: Hydrogeology Professor Giorgio - SUJIT , will evaluate in the ED and make plan for patient Lab Data [facility] Lab Attestation statement: I reviewed the patient's lab results. 12/25/22 01:56 12/25/22 01:56 Labs: Lab Results 12/25/22 12/25/22 12/25/22 Range/Units 01:56 01:56 02:21 WBC 8.9 8.0 (4.8-10.8) X10*3/uL RBC 4.72 4.66 (4.20-5.50) X10*6/uL Hgb 12.3 12.2 (12.0-16.0) g/dl Hct 38.3 37.8 (37.0-47.0) % MCV 81.1 81.1 (80.0-98.0) fL MCH 26.1 L 26.2 L (27.0-33.0) pg MCHC 32.1 32.3 (31.0-35.0) g/dl RDW 12.2 12.3 (11.0-16.0) % Plt Count 209 205 (160-400) X10*3/uL MPV 8.9 L 8.8 L (9.4-12.3) fL Immature Gran % (Auto) 0.3 (0.0-0.4) % Neut % (Auto) 56.7 (45-73) % Lymph % (Auto) 29.7 (20-40) % [place] % (Auto) 11.5 H (2-11) % Eos % (Auto) 1.4 (0-4) % Baso % (Auto) 0.4 (0-2) % Lymph # (Auto) 2.4 (1.2-4.9) X10*3/uL [place] # (Auto) 0.9 (0.1-1.2) X10*3/uL Eos # (Auto) 0.1 (0.0-0.4) X10*3/uL Baso # (Auto) 0.0 (0.0-0.2) X10*3/uL Abs Immat Gran (auto) 0.02 (0.00-0.03) X10*3/uL Absolute Neuts (auto) 4.5 (2.0-8.3) x10*3/uL Absolute Nucleated RBC 0.000 0.000 (0.0-0.012) X10*3/uL Nucleated RBC % (auto) 0.0 0.0 (0.0-0.2) /100WBC PT (11.1-13.3) SEC INR (0.9-1.1) Sodium 141 (135-145) mmol/L Potassium 3.5 (3.3-5.1) mmol/L Chloride 107 (96-108) mmol/L Carbon Dioxide 27 (22-29) mmol/L Anion Gap 11 L (12-20) BUN 15 (9-16) mg/dL Creatinine 0.72 (0.5-1.4) mg/dL Estim Creat Clear Calc 103.7 Estimated GFR > 60 Random Glucose 90 (60-115) mg/dL Calcium 9.6 (8.4-10.2) mg/dL Magnesium (1.6-2.6) mg/dL Total Bilirubin 1.0 (0.0-1.0) mg/dL Direct Bilirubin (0.0-0.5) mg/dL AST 114 H (5-31) U/L ALT 47 H (0-31) U/L Alkaline Phosphatase 106 (39-117) U/L Total Protein 7.7 (6.5-8.0) g/dL Albumin 4.0 (3.5-5.0) g/dL Lipase 142 H (8-78) U/L Beta HCG, Quant mIU/mL Urine Color Urine Appearance Urine pH Ur Specific [place] Urine Protein Urine Glucose (UA) Urine Ketones Urine Blood Urine Nitrite Ur Leukocyte Esterase Urine RBC (0-2) /HPF Urine WBC (0-5) /HPF Ur Squamous Epith Cells (0-2) /HPF Calcium Oxalate Crystal Urine Bacteria (None Seen) Hyaline Casts (0-2) /LPF Urine Test (NEGATIVE) 12/25/22 12/25/22 12/25/22 Range/Units 02:21 02:21 03:15 WBC (4.8-10.8) X10*3/uL RBC (4.20-5.50) X10*6/uL Hgb (12.0-16.0) g/dl Hct (37.0-47.0) % MCV (80.0-98.0) fL MCH (27.0-33.0) pg MCHC (31.0-35.0) g/dl RDW (11.0-16.0) % Plt Count (160-400) X10*3/uL MPV (9.4-12.3) fL Immature Gran % (Auto) (0.0-0.4) % Neut % (Auto) (45-73) % Lymph % (Auto) (20-40) % [place] % (Auto) (2-11) % Eos % (Auto) (0-4) % Baso % (Auto) (0-2) % Lymph # (Auto) (1.2-4.9) X10*3/uL [place] # (Auto) (0.1-1.2) X10*3/uL Eos # (Auto) (0.0-0.4) X10*3/uL Baso # (Auto) (0.0-0.2) X10*3/uL Abs Immat Gran (auto) (0.00-0.03) X10*3/uL Absolute Neuts (auto) (2.0-8.3) x10*3/uL Absolute Nucleated RBC (0.0-0.012) X10*3/uL Nucleated RBC % (auto) (0.0-0.2) /100WBC PT 12.9 (11.1-13.3) SEC INR 1.1 (0.9-1.1) Sodium 141 (135-145) mmol/L Potassium 3.7 (3.3-5.1) mmol/L Chloride 107 (96-108) mmol/L Carbon Dioxide 25 (22-29) mmol/L Anion Gap 13 (12-20) BUN 14 (9-16) mg/dL Creatinine 0.69 (0.5-1.4) mg/dL Estim Creat Clear Calc 108.2 Estimated GFR > 60 Random Glucose 90 (60-115) mg/dL Calcium 9.4 (8.4-10.2) mg/dL Magnesium 2.2 (1.6-2.6) mg/dL Total Bilirubin 1.0 (0.0-1.0) mg/dL Direct Bilirubin 0.5 (0.0-0.5) mg/dL AST 130 H (5-31) U/L ALT 54 H (0-31) U/L Alkaline Phosphatase 103 (39-117) U/L Total Protein 7.4 (6.5-8.0) g/dL Albumin 3.8 (3.5-5.0) g/dL Lipase 131 H (8-78) U/L Beta HCG, Quant < 2 mIU/mL Urine Color Cancelled Urine Appearance Cancelled Urine pH Cancelled Ur Specific [place] Cancelled Urine Protein Cancelled Urine Glucose (UA) Cancelled Urine Ketones Cancelled Urine Blood Cancelled Urine Nitrite Cancelled Ur Leukocyte Esterase Cancelled Urine RBC (0-2) /HPF Urine WBC (0-5) /HPF Ur Squamous Epith Cells (0-2) /HPF Calcium Oxalate Crystal Urine Bacteria (None Seen) Hyaline Casts (0-2) /LPF Urine Test (NEGATIVE) 12/25/22 12/25/22 Range/Units 03:15 03:15 WBC (4.8-10.8) X10*3/uL RBC (4.20-5.50) X10*6/uL Hgb (12.0-16.0) g/dl Hct (37.0-47.0) % MCV (80.0-98.0) fL MCH (27.0-33.0) pg MCHC (31.0-35.0) g/dl RDW (11.0-16.0) % Plt Count (160-400) X10*3/uL MPV (9.4-12.3) fL Immature Gran % (Auto) (0.0-0.4) % Neut % (Auto) (45-73) % Lymph % (Auto) (20-40) % [place] % (Auto) (2-11) % Eos % (Auto) (0-4) % Baso % (Auto) (0-2) % Lymph # (Auto) (1.2-4.9) X10*3/uL [place] # (Auto) (0.1-1.2) X10*3/uL Eos # (Auto) (0.0-0.4) X10*3/uL Baso # (Auto) (0.0-0.2) X10*3/uL Abs Immat Gran (auto) (0.00-0.03) X10*3/uL Absolute Neuts (auto) (2.0-8.3) x10*3/uL Absolute Nucleated RBC (0.0-0.012) X10*3/uL Nucleated RBC % (auto) (0.0-0.2) /100WBC PT (11.1-13.3) SEC INR (0.9-1.1) Sodium (135-145) mmol/L Potassium (3.3-5.1) mmol/L Chloride (96-108) mmol/L Carbon Dioxide (22-29) mmol/L Anion Gap (12-20) BUN (9-16) mg/dL Creatinine (0.5-1.4) mg/dL Estim Creat Clear Calc Estimated GFR Random Glucose (60-115) mg/dL Calcium (8.4-10.2) mg/dL Magnesium (1.6-2.6) mg/dL Total Bilirubin (0.0-1.0) mg/dL Direct Bilirubin (0.0-0.5) mg/dL AST (5-31) U/L ALT (0-31) U/L Alkaline Phosphatase (39-117) U/L Total Protein (6.5-8.0) g/dL Albumin (3.5-5.0) g/dL Lipase (8-78) U/L Beta HCG, Quant mIU/mL Urine Color Dark Yellow Urine Appearance Clear Urine pH 5.5 Ur Specific [place] >= 1.030 H Urine Protein Trace Urine Glucose (UA) Negative Urine Ketones Trace Urine Blood Negative Urine Nitrite Negative Ur Leukocyte Esterase Small (1+) H Urine RBC 3-5 H (0-2) /HPF Urine WBC 11-20 H (0-5) /HPF Ur Squamous Epith Cells 11-20 (0-2) /HPF Calcium Oxalate Crystal Present Urine Bacteria 2+ (None Seen) Hyaline Casts 0-2 (0-2) /LPF Urine Test NEGATIVE (NEGATIVE) Independent Interpretation I performed an independent interpretation of an: CT Scan (gallstones seen) Radiology Impression Discussion of test interpretation with radiology: I have reviewed the radiologist's reading. Independent Historian Clinical information obtained from an independent historian. History obtained from or confirmed by: Spouse External Record Review External record reviewed: Inpatient record and Prior outpatient labs Medications Administered Generic Name Dose Route Start Last Admin Trade Name Freq PRN Reason Stop Dose Admin Lactated Ringer's 1,000 mls @ 100 mls/hr 12/25/22 06:00 12/25/22 06:06 Lr IVCONT 100 mls/hr .Q10H RODGER Administration Discontinued Medications Generic Name Dose Route Start Last Admin Trade Name Freq PRN Reason Stop Dose Admin Hydromorphone HCl 1 mg 12/25/22 02:11 12/25/22 03:08 Hydromorphone Hcl 1 Mg/Ml Syringe IVPUSH 12/25/22 02:12 1 mg ONCE ONE Administration Protocol Hydromorphone HCl 1 mg 12/25/22 05:56 12/25/22 06:02 Hydromorphone Hcl 1 Mg/Ml Syringe IVPUSH 12/25/22 05:57 1 mg ONCE ONE Administration Protocol Sodium Chloride 1,000 mls @ 999 mls/hr 12/25/22 02:15 12/25/22 03:10 Ns IVCONT 12/25/22 03:15 999 mls/hr .Q1H1M RODGER Administration Iohexol 85 ml 12/25/22 03:03 12/25/22 03:04 Iohexol 350 Mg/Ml 100 Ml Infus..Btl IV 12/25/22 03:04 85 ml ONCE ONE Administration Ondansetron HCl 4 mg 12/25/22 02:11 12/25/22 03:09 Ondansetron Hcl 4 Mg/2 Ml Vial IVPUSH 12/25/22 02:12 4 mg ONCE ONE Administration Critical Care Time Critical Care Time Critical Care Time: Yes Total Critical Care Time: 31 Attestation: 2 doses of IV dilaudid with improved pain control for abdominal pain Discharge Plan Discharge Clinical Impression: Biliary colic, Elevated liver enzymes, Abdominal pain Patient Disposition: Admitted As Inpatient
[2022-12-25 02:25] LABS: MANUAL DIFF FLAG NO
[2022-12-25 02:29] LABS: Basophils Percent Auto 0.4 % (0-2); Eosinophils Absolute Auto 0.1 X10*3/uL (0.0-0.4); Eosinophils Percent Auto 1.4 % (0-4); Hematocrit 37.8 % (37.0-47.0); Hemoglobin 12.2 g/dl (12.0-16.0); Imm Gran Abs Auto 0.02 X10*3/uL (0.00-0.03); Imm Gran Pct Auto 0.3 % (0.0-0.4); Lymphocytes Absolute Auto 2.4 X10*3/uL (1.2-4.9); Lymphocytes Percent Auto 29.7 % (20-40); Mean Corpuscular HGB Conc 32.3 g/dl (31.0-35.0); Mean Corpuscular Hemoglobin 26.2 pg (27.0-33.0); Mean Corpuscular Volume 81.1 fL (80.0-98.0); Mean Platelet Volume 8.8 fL (9.4-12.3); Monocytes Absolute Auto 0.9 X10*3/uL (0.1-1.2); Monocytes Percent Auto 11.5 % (2-11); Neutrophils Absolute Auto 4.5 x10*3/uL (2.0-8.3); Neutrophils Percent Auto 56.7 % (45-73); Platelet Count 205 X10*3/uL (160-400); Red Blood Count 4.66 X10*6/uL (4.20-5.50); Red Cell Distribution Width 12.3 % (11.0-16.0)
[2022-12-25 02:35] LABS: INTERNATIONAL NORM RATIO 1.1 (0.9-1.1); Prothrombin Time 12.9 SEC (11.1-13.3)
[2022-12-25 02:47] LABS: Alanine Aminotransferase 54 U/L (0-31); Albumin Level 3.8 g/dL (3.5-5.0); Alkaline Phosphatase 103 U/L (39-117); Anion Gap 13 (12-20); Aspartate Amino Transferase 130 U/L (5-31); Bilirubin Direct 0.5 mg/dL (0.0-0.5); Blood Urea Nitrogen 14 mg/dL (9-16); Calcium 9.4 mg/dL (8.4-10.2); Carbon Dioxide 25 mmol/L (22-29); Chloride 107 mmol/L (96-108); Creatinine Clr Calc Pharmacy 108.2; Estimated Glomerular Filt Rate > 60; Glucose Random 90 mg/dL (60-115); HCG Quantitative < 2 mIU/mL; Lipase 131 U/L (8-78); Magnesium 2.2 mg/dL (1.6-2.6); Potassium 3.7 mmol/L (3.3-5.1); Sodium 141 mmol/L (135-145); Total Protein 7.4 g/dL (6.5-8.0)
[2022-12-25] MEDS: iohexoL 350 MG/ML 100 ML INFUS..BTL 85 ML IV (03:04)
[2022-12-25] MEDS: HYDROmorphone HCl 1 MG/ML SYRINGE IVPUSH ×2 (03:08→06:02)
[2022-12-25] MEDS: ondansetron HCL 4 MG/2 ML VIAL IVPUSH ×3 (03:09→19:22)
[2022-12-25] MEDS: 0.9 % Sodium Chloride 1,000 ML 999 ML IVCONT (03:10)
[2022-12-25 03:24] LABS: Appearance Urine Clear; Color Urine Dark Yellow; Glucose Urine UA Negative (Negative); Leukocyte Esterase Urine Small (1+) (Negative); Nitrite Urine Negative (Negative); PH 5.5 (5.0-9.0); Specific Gravity - Urine >= 1.030 (1.005-1.025); UMIC TRIGGER UACC YES; UPreg QC Valid YES; Urine Blood Negative (Negative); Urine Ketones Trace mg/dL (Negative); Urine Pregnancy NEGATIVE (NEGATIVE); Urine Protein Trace mg/dL (Neg-Trace)
[2022-12-25 03:39] LABS: Bacteria Urine 2+ (None Seen); Calcium Oxalate Crystals Urine Present; Hyaline Casts Urine 0-2 /LPF (0-2); UACC Culture Trigger YES
[2022-12-25] MEDS: Lactated Ringers 1,000 ML 100 ML IVCONT ×2 (06:06→13:02)
--- NOTE | 2022-12-25 07:01 | PM.HPGS ---
History of Present Illness History of Present Illness Date of Service: 12/25/22 Chief complaint: Billiary colic Narrative: Nadia Williamson is a 42 year old female who is status post laparoscopic sleeve gastrectomy 01/16/2022 with resultant excellent weight loss. She had been doing well until in recent weeks when she started to develop abdominal pain associated with nausea and vomiting and was seen at [facility] and diagnosed with gallstones. Her symptoms waxed and waned and worsened overnight so she presented to the emergency department here at [place] and I was asked to evaluate her. The patient's is at the bedside; at this time, she reports she is feeling a little better but is still experiencing right upper quadrant aching and nausea. She has just been re medicated with an IV opiate. Past surgical history per patient include sleeve gastrectomy Review of Systems Review of Systems: Yes all other systems are reviewed and are negative Constitutional: Constitutional: Reports as per [facility] Past Medical History Medical History Adjustment disorder BMI 38.0-38.9,adult History of COVID-19 No pertinent past medical history Obese Vitamin B12 deficiency Family History Family History Mother No problems noted. Father No problems noted. Brother No problems noted. Brother No problems noted. Sister No problems noted. Sister No problems noted. Sister No problems noted. Sister No problems noted. Sister Breast cancer Daughter No problems noted. Daughter No problems noted. Daughter No problems noted. Daughter No problems noted. Son No problems noted. Surgical History Surgical History Hx of tubal ligation S/P laparoscopic sleeve gastrectomy Social History Social History Are you a primary care attendant to a significant other at home: No Do you presently have visiting nurse or other home services: No Alcohol intake: never Patient Tobacco Use Status: Never used Tobacco Smoked in Last 30 Days: No Second Hand Smoke Exposure: No Use of substances other than those prescribed or required for medical reasons: No Advance Directives: No Advance Directives Information Provided: Yes Patient : No service: No Current occupational status: employed Meds Allergies Allergy/AdvReac Type Severity Reaction Status Date / Time No Known Allergies Allergy Verified 08/03/22 14:42 Active Medications: Current Medications Lactated Ringer's (Lr) 1,000 mls @ 100 mls/hr IVCONT .Q10H RODGER Last Admin: 12/25/22 06:06 Dose: 100 mls/hr Home Medications Medication Instructions Recorded Confirmed Last Taken Type Leo +D PO BID 02/23/22 11/21/22 Unknown History fusion MVI PO DAILY 04/24/22 11/21/22 Unknown History Physical Exam Vital Signs: Vital Signs: Last Vital Signs Temp 97.9 F 12/25/22 06:00 Pulse 53 12/25/22 06:00 Resp 16 12/25/22 06:00 BP 108/66 12/25/22 06:00 Pulse Ox 98 12/25/22 06:00 O2 Del Method Room Air 12/25/22 06:00 BMI result Body Mass Index 25.5 The patient is non-toxic & in good spirits NC/AT, PERRLA, EOMI Mood, affect & judgment all appear appropriate Sclera anicteric conjunctiva pink and moist Oropharynx is clear with no aphthous ulcers, Mallampati class 4, mucous membranes moist Neck is supple with no masses, adenopathy or bruits Heart is regular, normal S1-S2 no rubs or murmurs Lungs are clear and equal anteriorly with no audible wheezing, rubs or dullness to percussion Abdomen is overweight with no demonstrable hernias. There is epigastric and right upper quadrant discomfort but no rebound, HSM, rebound, rigidity, guarding, masses or bruits are present. Rectal exam is deferred Skin has good turgor and is free of rashes Extremities free of cyanosis clubbing edema Results Results Labs: Short CBC 12/25/22 12/25/22 Range/Units 01:56 02:21 WBC 8.9 8.0 (4.8-10.8) X10*3/uL Hgb 12.3 12.2 (12.0-16.0) g/dl Hct 38.3 37.8 (37.0-47.0) % Plt Count 209 205 (160-400) X10*3/uL BMP 12/25/22 12/25/22 01:56 02:21 Sodium 141 141 Potassium 3.5 3.7 Chloride 107 107 Carbon Dioxide 27 25 BUN 15 14 Creatinine 0.72 0.69 Calcium 9.6 9.4 Liver Function 12/25/22 12/25/22 Range/Units 01:56 02:21 Total Bilirubin 1.0 1.0 (0.0-1.0) mg/dL Direct Bilirubin 0.5 (0.0-0.5) mg/dL AST 114 H 130 H (5-31) U/L ALT 47 H 54 H (0-31) U/L Alkaline Phosphatase 106 103 (39-117) U/L Albumin 4.0 3.8 (3.5-5.0) g/dL Urine 12/25/22 12/25/22 12/25/22 Range/Units 03:15 03:15 03:15 Urine Color Cancelled Dark Yellow Urine Appearance Cancelled Clear Urine pH Cancelled 5.5 Ur Specific [place] Cancelled >= 1.030 H Urine Protein Cancelled Trace Urine Glucose (UA) Cancelled Negative Urine Test NEGATIVE (NEGATIVE) Abdomen CT scan report/results: report reviewed and image reviewed CT scan - pelvis: report reviewed and image reviewed Abdominal ultrasound report/results: pending and image reviewed Additional studies: CBD measurement on both CT and abdominal ultrasound is 2.5 mm Assessment and Plan (1) Biliary colic: Status: Acute (2) Elevated liver enzymes: Status: Acute (3) S/P laparoscopic sleeve gastrectomy: Status: Acute (4) Pancreatitis: Status: Acute Plan The patient requested I communicate freely with her , Sumeet, who is at the bedside. He provided me with his cellphone [phone]. It is unclear if the patient is presenting with an early acute calculous cholecystitis or possibly spitting debris/sludge which is why her lipase is elevated. Given the increasing frequency of symptoms, I have recommended laparoscopic, possible open cholecystectomy and possible intraoperative cholangiogram. The option of 2nd opinion and discussion with her bariatric surgeon, Dr. Lechuga was offered but declined by the patient only since she had like to have this addressed as quickly as possible. The patient is in agreement and would like to proceed with lap choly. I also reviewed the inherent risks to surgery which include, but are not limited to: Bleeding that could require another operation or blood transfusion, the need for open surgery, the unlikely but possible issue of bile leak that could require an ERCP, the risk of retained common duct stones that could require an ERCP, the risk of common bile duct injury which would require transfer to a larger institution for another operation. Patient seemed to understand her options, declined a accounts payable representative or 2nd opinion and wants to proceed. The patient is admitted since trending her labs postoperatively will be required. The possible need for MRCP if her LFTs and lipase elevate was also discussed and apparently understood. Patient's questions regarding postoperative diet and activity restrictions were also discussed and questions answered. Patient will be kept NPO; OR is tentatively scheduled for 10:00 today. 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 I have her operative consent in my possession. Time Spent With Patient Time: Total time managing care of this patient today ____ minutes. Quality Stroke Does the patient have a stroke diagnosis?: No VTE Prior VTE?: No VTE Risk Level:: Surgical - moderate VTE Device Contraindication: N/A - Device Ordered VTE Drug Contraindication: Treatment Not Indicated Procedures Date of Service Date of Service: 12/25/22
--- NOTE | 2022-12-25 07:47 | PC.NURSE ---
pt axox4, respirations even and unlabored, vss, skin wpd. pt reports pain and nausea relieved. pt questions plan of care; educated about plan of care; surgeon to bedside. pt denies further questions concerns. at bedside. ivf infusing. call carrizales within reach.
--- NOTE | 2022-12-25 08:17 | W.PM.OPN ---
Operative Note Operative Note Date of Service: 12/25/22 Narrative: Preop diagnosis: [Biliary colic versus acute calculous cholecystitis versus choledocholithiasis] Postop diagnosis: [Same, suspect early acute calculous cholecystitis] Procedure: [Laparoscopic cholecystectomy] Surgeon: Niles Nicole MD Assist: [Wisam Smith PA-C] Anesthesia: [GET; Marcaine, 0.5%] Estimated blood loss: [3cc] Specimen: [Gallbladder with content] Intraoperative findings: [Adhesions from the duodenum and omentum to the gallbladder; critical view of safety demonstrated with a 4-5 mm cystic duct and 3mm cystic artery] Indications: [The patient is a 42-year-old woman who is status post laparoscopic sleeve gastrectomy with excellent weight loss who has had progressive abdominal pain, gallstones and symptoms consistent with biliary colic verses early acute calculous cholecystitis verses transient choledocholithiasis. Options in management were reviewed and I recommended proceeding with laparoscopic cholecystectomy, possible open surgery and possible cholangiogram. The option of a 2nd opinion was discussed but declined. I also reviewed the inherent risks to surgery which include, but are not limited to: Bleeding that could require another operation or blood transfusion, the need for open surgery, the unlikely but possible issue of bile leak that could require an ERCP, the risk of retained common duct stones that could require an ERCP, the risk of common bile duct injury which would require transfer to a larger institution for another operation. Patient seemed to understand her options, declined a group underwriter or 2nd opinion and wants to proceed.] Procedure: [The patient was identified in preoperative holding and again in the operating room and placed supine on the table. An appropriate time-out was performed and preemptive local used at all trocar insertion sites. I began at the patient's supraumbilical midline and placed a Veress needle through a transverse supraumbilical incision. An appropriate drop test was performed. The needle was connected to high flow and opening pressures were 6 mmHg. A pneumoperitoneum of 15 mmHg was then obtained using carbon dioxide. The Veress needle was then removed and I accessed the patient's abdomen through the supraumbilical midline incision using a 5 mm Optiview trocar and 30 degree/5 mm laparoscopic without incident. Next a a 5 mm epigastric and two 5 mm right subcostal ports were placed with preemptive analgesia under direct laparoscopic vision without incident and the supraumbilical trocar upsized to a 12 mm trocar under direct laparoscopic vision. The gallbladder was clearly identified and grasped by its fundus. Complete retraction was limited due to adhesions from the omentum and the duodenum to the neck of the gallbladder. Careful dissection preserving the duodenum was performed and the gallbladder was then retracted cranially and anteriorly and dissection began in the lateral cystic triangle. The cystic duct was identified at its junction on the gallbladder and dissection carried medially, then circumferentially using the [place] dissector and hook. The cystic artery was then carefully identified and circumferentially dissected. Once dissection of both structures was complete and the critical view of safety demonstrated, the duct and artery were triple clipped proximally and once distally and sharply divided. Electrocautery was used to remove the gallbladder from its fossa on the liver. Edema between the wall of the gallbladder and liver was noted, suspicious for early cholecystitis. Liver bed was inspected for hemostasis and the clips were noted to be on the respective structures. The gallbladder was placed in an Endo-Catch bag and delivered through the umbilicus under direct laparoscopic vision. The abdomen was again inspected with the laparoscoped and a abdomen deflated to assess for hemostasis. The patient was returned to neutral position, the abdomen deflated and the fascia of the supraumbilical incision closed with interrupted Vicryl sutures. Skin was closed with 4-0 Monocryl subcuticular sutures. Mastisol and Steri-Strips were applied followed by Band-Aids. The patient tolerated the procedure well and was extubated recovered in stable condition. All sponge instrument counts were correct. At the patient's request I spoke to her Sumeet in the waiting room. Questions seemed to be satisfactorily answered.]
--- NOTE | 2022-12-25 08:40 | PC.NURSE ---
Cefazolin to be given in OR per Dr Nicole
--- NOTE | 2022-12-25 09:46 | PHA.MEDREC ---
Pharmacy Consult ? Medication Reconciliation Pharmacy has completed the medication reconciliation.
--- NOTE | 2022-12-25 09:54 | HO.ANESPROP2 ---
FORMERLY [facility] Active Problems Active Problems: All Active Problems (Updated 12/25/22 @ 08:11 by Niles Nicole MD) Pancreatitis (Acute) Biliary colic (Acute) Elevated liver enzymes (Acute) Abdominal pain (Acute) Overweight (BMI 25.0-29.9) (Acute) Obesity (BMI 30-39.9) (Acute) S/P laparoscopic sleeve gastrectomy (Acute) Congenital intra-abdominal adhesions (Acute) Liver fibrosis (Acute) Steatosis, liver (Acute) Morbid obesity (Acute) Past Medical History Medical History Adjustment disorder BMI 38.0-38.9,adult History of COVID-19 No pertinent past medical history Obese Vitamin B12 deficiency Family History Family History Mother No problems noted. Father No problems noted. Brother No problems noted. Brother No problems noted. Sister No problems noted. Sister No problems noted. Sister No problems noted. Sister No problems noted. Sister Breast cancer Daughter No problems noted. Daughter No problems noted. Daughter No problems noted. Daughter No problems noted. Son No problems noted. Family history of problems with anesthesia: No Surgical History Surgical History Hx of tubal ligation S/P laparoscopic sleeve gastrectomy History of Problems with Anesthesia: No Social History Social History Are you a primary specialist wound care to a significant other at home: No Do you presently have visiting nurse or other home services: No Alcohol intake: never Patient Tobacco Use Status: Never used Tobacco Second Hand Smoke Exposure: No service: No Current occupational status: employed Meds Allergies Allergy/AdvReac Type Severity Reaction Status Date / Time No Known Allergies Allergy Verified 08/03/22 14:42 Active Medications: Current Medications Hydromorphone HCl (Hydromorphone Hcl 0.5 Mg/0.5 Ml Syringe) 0.25 mg IVPUSH Q2H PRN; Protocol PRN Reason: Pain, Moderate(Pain Scale 4-6) Lactated Ringer's (Lr) 1,000 mls @ 100 mls/hr IVCONT .Q10H [facility] Last Admin: 12/25/22 06:06 Dose: 100 mls/hr Lactated Ringer's (Lr) 1,000 mls @ 100 mls/hr IVCONT .Q10H [facility] Last Admin: 12/25/22 08:51 Dose: Not Given Ondansetron HCl (Ondansetron Hcl 4 Mg/2 Ml Vial) 4 mg IVPUSH Q6H PRN PRN Reason: Nausea and Vomiting Home Medications Medication Instructions Recorded Confirmed Last Taken Type morphine 15 mg immediate release 15 mg PO TID PRN Pain 12/25/22 12/25/22 12/24/22 History tablet ondansetron 4 mg disintegrating 4 mg PO Q8H PRN Nausea And Vomiting 12/25/22 12/25/22 12/24/22 History tablet Exam Exam Date and Time: December 25, 2022 0954 Height,Weight and Vital Signs: Height 5 ft 8 in Weight 76.204 kg Last Vital Signs Temp 98.4 F 12/25/22 09:47 Pulse 54 12/25/22 09:47 Resp 16 12/25/22 09:47 BP 119/71 12/25/22 09:47 Pulse Ox 100 12/25/22 09:47 O2 Del Method Room Air 12/25/22 09:47 Pertinent Lab Results Pertinent Lab Results: Laboratory Tests 12/25/22 12/25/22 12/25/22 01:56 01:56 02:21 WBC 8.9 8.0 RBC 4.72 4.66 Hgb 12.3 12.2 Hct 38.3 37.8 MCV 81.1 81.1 MCH 26.1 L 26.2 L MCHC 32.1 32.3 RDW 12.2 12.3 Plt Count 209 205 MPV 8.9 L 8.8 L Immature Gran % (Auto) 0.3 Neut % (Auto) 56.7 Lymph % (Auto) 29.7 Door % (Auto) 11.5 H Eos % (Auto) 1.4 Baso % (Auto) 0.4 Lymph # (Auto) 2.4 Door # (Auto) 0.9 Eos # (Auto) 0.1 Baso # (Auto) 0.0 Abs Immat Gran (auto) 0.02 Absolute Neuts (auto) 4.5 Absolute Nucleated RBC 0.000 0.000 Nucleated RBC % (auto) 0.0 0.0 PT INR Sodium 141 Potassium 3.5 Chloride 107 Carbon Dioxide 27 Anion Gap 11 L BUN 15 Creatinine 0.72 Estim Creat Clear Calc 103.7 Estimated GFR > 60 Random Glucose 90 Calcium 9.6 Magnesium Total Bilirubin 1.0 Direct Bilirubin AST 114 H ALT 47 H Alkaline Phosphatase 106 Total Protein 7.7 Albumin 4.0 Lipase 142 H Beta HCG, Quant Urine Color Urine Appearance Urine pH Ur Specific [place] Urine Protein Urine Glucose (UA) Urine Ketones Urine Blood Urine Nitrite Ur Leukocyte Esterase Urine RBC Urine WBC Ur Squamous Epith Cells Calcium Oxalate Crystal Urine Bacteria Hyaline Casts Urine Test 12/25/22 12/25/22 12/25/22 02:21 02:21 03:15 WBC RBC Hgb Hct MCV MCH MCHC RDW Plt Count MPV Immature Gran % (Auto) Neut % (Auto) Lymph % (Auto) Door % (Auto) Eos % (Auto) Baso % (Auto) Lymph # (Auto) Door # (Auto) Eos # (Auto) Baso # (Auto) Abs Immat Gran (auto) Absolute Neuts (auto) Absolute Nucleated RBC Nucleated RBC % (auto) PT 12.9 INR 1.1 Sodium 141 Potassium 3.7 Chloride 107 Carbon Dioxide 25 Anion Gap 13 BUN 14 Creatinine 0.69 Estim Creat Clear Calc 108.2 Estimated GFR > 60 Random Glucose 90 Calcium 9.4 Magnesium 2.2 Total Bilirubin 1.0 Direct Bilirubin 0.5 AST 130 H ALT 54 H Alkaline Phosphatase 103 Total Protein 7.4 Albumin 3.8 Lipase 131 H Beta HCG, Quant < 2 Urine Color Cancelled Urine Appearance Cancelled Urine pH Cancelled Ur Specific [place] Cancelled Urine Protein Cancelled Urine Glucose (UA) Cancelled Urine Ketones Cancelled Urine Blood Cancelled Urine Nitrite Cancelled Ur Leukocyte Esterase Cancelled Urine RBC Urine WBC Ur Squamous Epith Cells Calcium Oxalate Crystal Urine Bacteria Hyaline Casts Urine Test 12/25/22 12/25/22 03:15 03:15 WBC RBC Hgb Hct MCV MCH MCHC RDW Plt Count MPV Immature Gran % (Auto) Neut % (Auto) Lymph % (Auto) Door % (Auto) Eos % (Auto) Baso % (Auto) Lymph # (Auto) Door # (Auto) Eos # (Auto) Baso # (Auto) Abs Immat Gran (auto) Absolute Neuts (auto) Absolute Nucleated RBC Nucleated RBC % (auto) PT INR Sodium Potassium Chloride Carbon Dioxide Anion Gap BUN Creatinine Estim Creat Clear Calc Estimated GFR Random Glucose Calcium Magnesium Total Bilirubin Direct Bilirubin AST ALT Alkaline Phosphatase Total Protein Albumin Lipase Beta HCG, Quant Urine Color Dark Yellow Urine Appearance Clear Urine pH 5.5 Ur Specific [place] >= 1.030 H Urine Protein Trace Urine Glucose (UA) Negative Urine Ketones Trace Urine Blood Negative Urine Nitrite Negative Ur Leukocyte Esterase Small (1+) H Urine RBC 3-5 H Urine WBC 11-20 H Ur Squamous Epith Cells 11-20 Calcium Oxalate Crystal Present Urine Bacteria 2+ Hyaline Casts 0-2 Urine Test NEGATIVE Airway Mallampati Class: II TM Dist: >3cm Neck ROM: Full Lungs: clear Assessment and Plan Assessment Anesthesia Assessment: Anesthesia Plan Discussed and Chart Reviewed Final Anesthetic Review Family History of Problems with Anesthesia: No History of Problems with Anesthesia: No NPO: Yes ASA Class: II Final Preanesthetic Review: No Changes in Pt Med Stat, Meds/Allgs Chart Reviewed, Consent Obtained/Reviewed and Anes Risks/Benef Reviewed Patient Risk: Intermediate Procedure Risk: Intermediate Anesthetic Plan Anesthetic Plan: GA Disposition: Standard PACU
[2022-12-25] MEDS: Piperacillin Sodium/Tazobactam 3.375 GM in 0.9 % Sodium Chloride 50 ML IV ×2 (13:02→17:32)
[2022-12-25] MEDS: oxyCODONE HCl Immed Release 5 MG TABLET PO (15:39)
[2022-12-25] MEDS: Docusate Sodium 100 MG CAPSULE 200 MG PO (19:17)
[2022-12-25] MEDS: HYDROmorphone HCl 0.5 MG/0.5 ML SYRINGE 0.25 MG IVPUSH (19:17)
[2022-12-26] MEDS: Piperacillin Sodium/Tazobactam 3.375 GM in 0.9 % Sodium Chloride 50 ML IV ×3 (00:29→11:11)
[2022-12-26] MEDS: ondansetron HCL 4 MG/2 ML VIAL IVPUSH ×3 (00:34→14:36)
[2022-12-26] MEDS: HYDROmorphone HCl 0.5 MG/0.5 ML SYRINGE 0.25 MG IVPUSH ×4 (00:34→14:34)
[2022-12-26 03:50] VITALS: BP 118/60; PULSE 71; RESP 18; TEMP 36.2; O2SAT 98
[2022-12-26] MEDS: Lactated Ringers 1,000 ML 100 ML IVCONT (05:15)
[2022-12-26 06:37] LABS: MANUAL DIFF FLAG NO
[2022-12-26 06:41] LABS: Basophils Percent Auto 0.3 % (0-2); Eosinophils Absolute Auto 0.1 X10*3/uL (0.0-0.4); Eosinophils Percent Auto 0.8 % (0-4); Hematocrit 35.3 % (37.0-47.0); Hemoglobin 11.4 g/dl (12.0-16.0); Imm Gran Abs Auto 0.02 X10*3/uL (0.00-0.03); Imm Gran Pct Auto 0.2 % (0.0-0.4); Lymphocytes Absolute Auto 2.7 X10*3/uL (1.2-4.9); Mean Corpuscular HGB Conc 32.3 g/dl (31.0-35.0); Mean Corpuscular Hemoglobin 26.3 pg (27.0-33.0); Mean Corpuscular Volume 81.3 fL (80.0-98.0); Mean Platelet Volume 9.3 fL (9.4-12.3); Monocytes Absolute Auto 0.8 X10*3/uL (0.1-1.2); Monocytes Percent Auto 9.3 % (2-11); Neutrophils Percent Auto 58.4 % (45-73); Platelet Count 191 X10*3/uL (160-400); Red Blood Count 4.34 X10*6/uL (4.20-5.50); Red Cell Distribution Width 12.3 % (11.0-16.0); White Blood Count 8.6 X10*3/uL (4.8-10.8)
[2022-12-26 06:55] LABS: Alanine Aminotransferase 147 U/L (0-31); Albumin Level 3.4 g/dL (3.5-5.0); Alkaline Phosphatase 108 U/L (39-117); Anion Gap 11 (12-20); Aspartate Amino Transferase 139 U/L (5-31); Bilirubin Total 1.6 mg/dL (0.0-1.0); Blood Urea Nitrogen 8 mg/dL (9-16); Calcium 9.7 mg/dL (8.4-10.2); Carbon Dioxide 28 mmol/L (22-29); Chloride 106 mmol/L (96-108); Estimated Glomerular Filt Rate > 60; Glucose Random 78 mg/dL (60-115); Lipase 18 U/L (8-78); Potassium 3.4 mmol/L (3.3-5.1); Sodium 142 mmol/L (135-145); Total Protein 6.6 g/dL (6.5-8.0)
[2022-12-26 07:25] VITALS: BP 118/56; PULSE 60; RESP 17; TEMP 36.7; O2SAT 96
--- NOTE | 2022-12-26 07:50 | PM.PNGS ---
Subjective Subjective Date of Service: 12/26/22 Patient reports: feels better Interval history: Patient is doing well, denies any nausea, vomiting and has been tolerating clears. She further denies any chest pain, difficulty breathing or shortness of breath. Physical Exam Vital Signs: Vital Signs: Last Vital Signs Temp 98.1 F 12/26/22 07:25 Pulse 60 12/26/22 07:25 Resp 17 12/26/22 07:25 BP 118/56 L 12/26/22 07:25 Pulse Ox 96 12/26/22 07:25 O2 Del Method Room Air 12/26/22 07:25 O2 Flow Rate 3 12/25/22 11:53 BMI result Body Mass Index 25.5 On exam she is anicteric and nontoxic She is in no acute respiratory distress Her abdominal incisions have appropriate incisional tenderness Objective Data Active Medications Docusate Sodium (Docusate Sodium 100 Mg Capsule) 200 mg PO BID [facility] Last Admin: 12/25/22 19:17 Dose: 200 mg Documented By: RUTH-SAURABHZEVilma Fentanyl (Fentanyl Citrate/Pf 100 Mcg/2 Ml Vial) 50 mcg IVPUSH Q5M PRN; Protocol PRN Reason: Pain, Severe (Pain Scale 7-10) Hydromorphone HCl (Hydromorphone Hcl 0.5 Mg/0.5 Ml Syringe) 0.25 mg IVPUSH Q2H PRN; Protocol PRN Reason: Pain, Moderate(Pain Scale 4-6) Last Admin: 12/26/22 05:51 Dose: 0.25 mg Documented By: AGUSTIN Lactated Ringer's (Lr) 1,000 mls @ 100 mls/hr IVCONT .Q10H [facility] Last Admin: 12/26/22 05:15 Dose: 100 mls/hr Documented By: RUTH-SAURABHZEVilma Piperacillin Sod/Tazobactam (Sod 3.375 gm/ Sodium Chloride) 50 mls @ 100 mls/hr IV Q6H [facility] Last Infusion: 12/26/22 07:00 Dose: 0 mls/hr Documented By: BO Ondansetron HCl (Ondansetron Hcl 4 Mg/2 Ml Vial) 4 mg IVPUSH Q6H PRN PRN Reason: Nausea and Vomiting Last Admin: 12/26/22 05:51 Dose: 4 mg Documented By: AGUSTIN Labs 12/26/22 06:05 12/26/22 06:05 Labs: Laboratory Results - last 24 hr 12/26/22 12/26/22 06:05 06:05 MCV 81.3 MCH 26.3 L MCHC 32.3 RDW 12.3 Plt Count 191 MPV 9.3 L Immature Gran % (Auto) 0.2 Neut % (Auto) 58.4 Lymph % (Auto) 31.0 [place] % (Auto) 9.3 Eos % (Auto) 0.8 Baso % (Auto) 0.3 Lymph # (Auto) 2.7 [place] # (Auto) 0.8 Eos # (Auto) 0.1 Baso # (Auto) 0.0 Abs Immat Gran (auto) 0.02 Absolute Neuts (auto) 5.0 Absolute Nucleated RBC 0.000 Nucleated RBC % (auto) 0.0 Anion Gap 11 L Estim Creat Clear Calc 97.0 Estimated GFR > 60 Random Glucose 78 Calcium 9.7 Total Bilirubin 1.6 H AST 139 H ALT 147 H Alkaline Phosphatase 108 Total Protein 6.6 Albumin 3.4 L Lipase 18 Imaging MRI - abdomen: Radiologist's impression: Impressions Cholangiopancreatography MRI 12/26/22 12:41 IMPRESSION: Fluid and stranding in the gallbladder fossa. No organized fluid collection. Susceptibility artifact at the bryan hepatis is suggestive of prior cholecystectomy. Advise correlation with surgical history. Procedures Date of Service Date of Service: 12/26/22 Progress Note: A&P Assessment and plan (1) Elevated liver enzymes: Status: Acute (2) S/P laparoscopic sleeve gastrectomy: Status: Acute Plan LFTs are more elevated than yesterday. Given her increased risk and presenting with elevated lipase, will order MRCP to assess for choledocholithiasis Hold on discharge ADDENDUM MRCP negative; tolerating liquids. OK for D/C Time Spent With Patient Time: Total time managing care of this patient today ____ minutes. Quality Stroke Does the patient have a stroke diagnosis?: No VTE Prior VTE?: No VTE Risk Level:: Surgical - moderate VTE Device Contraindication: N/A - Device Ordered VTE Drug Contraindication: Treatment Not Indicated
[2022-12-26] MEDS: Docusate Sodium 100 MG CAPSULE 200 MG PO (08:22)
[2022-12-26 09:36] VITALS: O2SAT 96
--- NOTE | 2022-12-26 13:51 | HO.POSTANES ---
Post Anesthesia Evaluation Post Anesthesia Evaluation Date of Service: 12/26/22 Vital Signs: Vital Signs Temp Pulse Resp BP Pulse Ox O2 Del Method 12/26/22 09:36 96 Room Air 12/26/22 07:25 98.1 F 60 17 118/56 L 96 Room Air 12/26/22 03:50 97.2 F 71 18 118/60 98 Room Air Anesthesia: General Endotracheal-GETA Mental Status: Awake Pain Control: Satisfactory Nausea/Vomiting: None Hydration: Adequate Anesthesia-Related Issues: No Anes. Related Issues
--- NOTE | 2022-12-26 14:08 | MHC.CM.PN ---
PATIENT LIVES WITH FAMILY AND IS FULLY INDEPENDENT NO DME OR [facility] FAMILY WILL PROVIDE TRANSPORT HOME AT TIME OF DC, LIKELY Saturday12/26/22 PATIENT IS RECENTLY RETURNED FROM MRI AND WAITING FOR REPORT TO BE READ. NO DC NEEDS ANTICIPATED.
[2022-12-26 15:37] VITALS: BP 100/59; PULSE 56; RESP 16; TEMP 36.8; O2SAT 100
--- NOTE | 2022-12-26 15:52 | PM.DS ---
DS: Providers Provider Date of Service: 12/26/22 Date of admission: 12/25/22 08:04 Primary care physician: Lyubov Hall MD DS: Diagnosis Discharge Diagnosis (1) Elevated liver enzymes: Status: Acute (2) S/P laparoscopic sleeve gastrectomy: Status: Acute DS: Summary Hospital Course Hospital Course: The see H&P for full details. Briefly, this 42-year-old woman presented with recurring biliary colic and possible choledocholithiasis. She was admitted and taken to surgery urgently and, grossly had acute on chronic cholecystitis due to edema intraoperatively. The day after surgery, her LFTs had increased requiring an MRCP which was negative for any intraductal/CBD debris or stones. The patient had been tolerating liquids and was discharged home in improved condition. Time Spent with Patient Time attestation: Total time managing care of this patient today ____ minutes. Discharge coordination time: Less than 30 minutes Quality: Safe Use of Opioids Does Pt have an Active Cancer Diagnosis on the Problem List?: No Quality: Stroke Does the patient have a stroke diagnosis?: No Physical Exam Vital Signs: Vital Signs: Last Vital Signs Temp 98.2 F 12/26/22 15:37 Pulse 56 12/26/22 15:37 Resp 16 12/26/22 15:37 BP 100/59 L 12/26/22 15:37 Pulse Ox 100 12/26/22 15:37 O2 Del Method Room Air 12/26/22 15:37 O2 Flow Rate 3 12/25/22 11:53 BMI result Body Mass Index 25.5 DS: Data Data Completed and Pending Completed studies during hospitalization [Text1]: Procedures Excision of Stomach, Percutaneous Endoscopic Approach, Vertical (01/16/22) Release Peritoneum, Percutaneous Endoscopic Approach (01/16/22) Pending studies at discharge: Pending at discharge 12/25/22 11:20 Surgical [PTH] Routine Labs on day of discharge: Laboratory Results - last 24 hr 12/26/22 12/26/22 06:05 06:05 WBC 8.6 RBC 4.34 Hgb 11.4 L Hct 35.3 L MCV 81.3 MCH 26.3 L MCHC 32.3 RDW 12.3 Plt Count 191 MPV 9.3 L Immature Gran % (Auto) 0.2 Neut % (Auto) 58.4 Lymph % (Auto) 31.0 [place] % (Auto) 9.3 Eos % (Auto) 0.8 Baso % (Auto) 0.3 Lymph # (Auto) 2.7 [place] # (Auto) 0.8 Eos # (Auto) 0.1 Baso # (Auto) 0.0 Abs Immat Gran (auto) 0.02 Absolute Neuts (auto) 5.0 Absolute Nucleated RBC 0.000 Nucleated RBC % (auto) 0.0 Sodium 142 Potassium 3.4 Chloride 106 Carbon Dioxide 28 Anion Gap 11 L BUN 8 L Creatinine 0.77 Estim Creat Clear Calc 97.0 Estimated GFR > 60 Random Glucose 78 Calcium 9.7 Total Bilirubin 1.6 H AST 139 H ALT 147 H Alkaline Phosphatase 108 Total Protein 6.6 Albumin 3.4 L Lipase 18 Discharge Plan Discharge Anticipated Discharge Date/Time: 12/26/22 15:47 Patient Disposition: Home, Self-Care Discharge Diagnosis: s/p lap suzanne for [facility] Referrals: Lyubov Hall MD [Primary Care Provider] - 1 Week Niles Nicole MD [Physician] - 1 Week Discharge Medications: New oxycodone 5 mg tablet 5 mg PO Q4H PRN (Reason: pain) Qty: 14 0RF Rx Instructions: Partial Fill upon patient request. Continued morphine 15 mg tablet 15 mg PO TID PRN (Reason: Pain) ondansetron 4 mg tablet,disintegrating 4 mg PO Q8H PRN (Reason: Nausea And Vomiting) multivitamin Tablet 1 tab PO DAILY calcium carbonate [Calcium 600] 600 mg calcium (1,500 mg) Tablet 600 mg PO DAILY Discharge Orders: Discharge Order (Routine); Ordered 12/26/22 Ordered By: Niles Nicole Diet: Low fat bariatric Activity on Discharge: No heavy lifting Stand Alone Forms: Patient Portal Discharge page Activity Restrictions/Additional Instructions: You had a laparoscopic cholecystectomy performed by Dr. Nicole. It is normal to experience some neck or shoulder pain from the gas used to inflate your abdomen. It is also normal to have pain or discomfort in your abdomen/belly as well as at the trocar sites (small incisions). This discomfort will resolve over the next 1-3 days, however, if it gets progressively worse, if you should develop worsening pain, nausea, vomiting and cannot keep liquids down, chest pain, difficulty breathing or shortness of breath, fevers over 100F please report to the nearest emergency department. Unless otherwise directed by Dr. Nicole, you should resume taking your regular medications. As Dr. Nicole reviewed in the office, you must not lift more than 20 lb for the next 4 weeks. Strenuous activities can tear out your sutures and cause an incisional hernia that would require another operation. Activities to be avoided include: sports, running, bicycling, yoga, lifting more than 20 lb, digging, gardening, splitting/carrying wood, swimming, hiking uphill, and other activities. If you have questions regarding this specific activity, please check with Dr. Nicole. If your incisions become red, swollen, tender or draining pus, please contact Dr. Nicole or go to the nearest emergency department. Do not shower or bathe for 48 hours. If there are bandages on your incisions, remove them in 48 hours. Do not allow your bandages to become wet for 48 hours. Do not soak in a tub or swimming pool until your incisions have completely sealed, usually 2 or more weeks. After the dressings are removed in 48 hours, you will notice paper tapes called butterflies/Steri-Strips. These tapes will fall off on their own in 1-2 weeks. You do not need to apply another bandage unless your clothing irritates your incisions. If you need to place another Band-Aid on your incisions, be sure to wait until the Steri strip is dry. You have been prescribed narcotic pain medicine that will cause constipation. Please purchase twoj-rbk-chteten stool softener known as Colace/docusate, 100 mg. Take 2 tablets with breakfast and the morning and 2 tablets in the evening after dinner until your bowels are moving and urine or longer taking narcotics. Please note that if you are not taking narcotics, the general anesthesia for the procedure can still cause constipation. If you experience diarrhea, stop taking the stool softener medicine. You can take [id number] Tylenol/acetaminophen with qzwl-pbj-hwabwxf ibuprofen or naproxen for pain unless you have an allergy or medical reason you are not not allowed to take these medications, such as peptic ulcers, taking blood thinners or kidney problems. You should also use ice packs to the operative site to help minimize pain and swelling for the first 3 days, or as needed afterwards. Unless there is a medical reason to avoid these medicines, you should take 2 mcld-zsg-adwqcfw Tylenol with two (2) wuly-ksm-veqsusv ibuprofen together, every 6 hours for the first 3 days to help with pain. Remember that the gallbladder helps to to digest fatty foods. If you eat fried foods; rich, creamy sauces; cheese; gravies or other such heavy, greasy foods, you will likely develop gas and bloating and diarrhea. To minimize this risk, eat a high protein, high-fiber, low-fat diet for the next few weeks. Care Plan Goals: Continue on low-fat bariatric diet allow adequate healing Health Concerns: Follow-up in Bariatric Clinic Plan of Treatment: Continue on low-fat high-protein bariatric diet and allow adequate healing Assessment: Cholecystitis, status post laparoscopic cholecystectomy
--- NOTE | 2022-12-26 15:55 | MHC.CM.PN ---
PATIENT IS DC HOME - SELF CARE FAMILY IN ROOM TO EQUIPMENT VALIDATION ENGINEER AWARE
== END 2022-12-26 16:20 | disposition home or self-care (01) | DRG 263 ==
LOC: HO.ED 07:53 → HO.EDOVER 08:10 → HO.S3 12:30
PROVIDERS: Admitting Provider Surgery; Emergency Provider Emergency Medicine; PCP Internal Medicine; Visit Provider Surgery
PROC: 0FT44ZZ Resection of Gallbladder, Percutaneous Endoscopic Approach (ICD-10-PCS; CPT 47562; principal; 2022-12-25 10:00)
DX: K80.12 Calculus of gallbladder with acute and chronic cholecystitis without obstruction (principal); R74.01 Elevation of levels of liver transaminase levels; Z98.84 Bariatric surgery status; Z79.899 Other long term (current) drug therapy
CPT/HCPCS: 36415; 74177; 74181; 76705; 80048; 80053; 80076; 81001; 81003; 81025; 83690; 83735; 84702; 85025; 85027; 85610; 87086; 88304; 99285; J1100; J1170; J1885; J2250; J2405; J2543; J3010; Q9967

== ENCOUNTER → 2022-12-25 08:04 | Outpatient (BNV) | payer OTHER, SELFPAY | PROVIDERS: Admitting Provider Surgery; Emergency Provider Emergency Medicine; PCP Internal Medicine; Visit Provider Surgery | DX: R74.8 Abnormal levels of other serum enzymes (principal); Z98.84 Bariatric surgery status | CPT/HCPCS: 99024 ==

== ENCOUNTER → 2022-12-25 08:04 | Outpatient (BNV) | payer OTHER, SELFPAY | PROVIDERS: Admitting Provider Surgery; Emergency Provider Emergency Medicine; PCP Internal Medicine; Visit Provider Surgery | DX: R74.8 Abnormal levels of other serum enzymes (principal); Z98.84 Bariatric surgery status | CPT/HCPCS: 47562; 99233; 99238 ==

== ENCOUNTER 2022-12-31 13:16 | Outpatient (AMB) | payer OTHER, SELFPAY ==
--- NOTE | 2022-12-31 13:20 | MHC.OFFVIS ---
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 The patient presented to the emergency room and was concerning for acute on chronic cholecystitis. Since surgery, she reports that she is doing well. She is tolerating her diet. She denies any watery diarrhea and notes that she has a follow-up in the surgical weight loss program with Wisam Smith PA-C at the end of the month; she works as a [employer] and they do not have the option for light duty, so she is submitted [facility] paperwork and requires re-evaluation before returning to work. [facility] Medical History (Updated 12/25/22 @ 08:11 by Niles Nicole MD) Adjustment disorder BMI 38.0-38.9,adult History of COVID-19 No pertinent past medical history Obese Vitamin B12 deficiency Surgical History Hx laparoscopic cholecystectomy Hx of tubal ligation S/P laparoscopic sleeve gastrectomy Family History Mother No problems noted. Father No problems noted. Brother No problems noted. Brother No problems noted. Sister No problems noted. Sister No problems noted. Sister No problems noted. Sister No problems noted. Sister Breast cancer Daughter No problems noted. Daughter No problems noted. Daughter No problems noted. Daughter No problems noted. Son No problems noted. Social History Household Members: Spouse Housing: House Are you a primary hearing healthcare practitioner to a significant other at home: No Do you presently have visiting nurse or other home services: No Alcohol intake: never Patient Tobacco Use Status: Never used Tobacco Second Hand Smoke Exposure: No service: No Current occupational status: employed Review of Systems Const All systems reviewed & are unremarkable except as noted in HPI and below Reports as per HPI Physical Exam Vital Signs: Last Vital Signs Temp 97.9 F 12/31/22 13:21 Pulse 73 12/31/22 13:21 BP 121/60 12/31/22 13:21 Pulse Ox 98 12/31/22 13:21 Oxygen Delivery Method Room Air 12/31/22 13:21 BMI result Body Mass Index 25.3 On exam, she is anicteric and nontoxic She is in no acute respiratory distress Abdominal incisions are healing well with minimal bruising, no erythema and no tenderness. Abdomen is soft and nontender Results Reviewed Results Reviewed: Pathology confirmed chronic calculous cholecystitis MRCP done on 12/26/2022 showed no evidence of intraluminal debris or stones; this was done due to ongoing pain and significant elevation of her LFTs. Her lipase was elevated at the time of admission. Assessment & Plan Assessment & Plan (1) S/P laparoscopic sleeve gastrectomy: Comment: 01/16/2022 Code(s): Z98.84 - Bariatric surgery status (2) S/P laparoscopic cholecystectomy: Code(s): Z90.49 - Acquired absence of other specified parts of digestive tract (3) Pancreatitis: Code(s): K85.90 - Acute pancreatitis without necrosis or infection, unspecified Plan Instructions regarding diet and activity were reviewed and apparently understood. The patient previously brought in FMLA forms since she cannot lift more than 20 lb for the next 5 weeks. Patient is advised to monitor for any signs or symptoms of choledocholithiasis but she was reassured by MRCP results that this is not likely. Will see the patient back in 1 month for reassessment. She will follow up in the surgical weight loss program at the end of the month with Wisam Smith PA-C. Coding Level of Care Code Global (67538) Diagnoses S/P laparoscopic sleeve gastrectomy Z98.84 S/P laparoscopic cholecystectomy Z90.49 Pancreatitis K85.90
[2022-12-31 13:21] VITALS: BP 121/60; PULSE 73; TEMP 36.6; O2SAT 98; BMI 25.3
== END 2022-12-31 13:45 | disposition home or self-care (01) ==
PROVIDERS: PCP Internal Medicine; Visit Provider Surgery
DX: Z98.84 Bariatric surgery status (principal); Z90.49 Acquired absence of other specified parts of digestive tract; K85.90 Acute pancreatitis without necrosis or infection, unspecified
CPT/HCPCS: 99024

== ENCOUNTER → 2022-12-31 13:16 | Outpatient (BNVA) | payer OTHER, SELFPAY | PROVIDERS: PCP Internal Medicine; Visit Provider Surgery ==

== ENCOUNTER 2023-01-25 12:03 | Outpatient (AMB) | payer OTHER, SELFPAY ==
--- NOTE | 2023-01-25 12:05 | A.OFFVIS_ITS ---
Intake VS Expanded 01/25/23 12:13 Height 5 ft 6 in Weight 164 lb 12.8 oz BMI 26.6 BP 136/71 Blood Pressure Location Rt brachial Blood Pressure Position Sitting Pulse 71 Pulse Source Pulse Oximeter Temp 97.7 F Temperature Source Tympanic Pulse Oximetry 99 Oxygen Delivery Method Room Air Body Fat 54.6 Body Fat Percentage 33.2 Free Fat Mass 78.8 Muscle Mass 104.4 Visceral Mass 5.0 Water Mass 78.8 BMR 1,497 Intake Visit Reasons: (OV) PO LSG 01/16/22 Flying Teacher Required: No Allergies No Known Allergies Allergy (Verified 12/31/22 13:22) Medication List - Last Reconciled 01/25/23 by BEBETO Del Rosario calcium carbonate (Calcium) 600 mg PO DAILY multivitamin 1 tab PO DAILY HPI HPI Comments History of Present Illness Details This?a?42?yo female who is s/p LSG without hiatal hernia repair on?01/16/[address] Lechuga. Presents for 1 year post op visit. Weight today is 164.8pounds, with a BMI of 25.? There has been a 96 pound weight loss,(initial weight 260.8 pounds) since starting the program on 10/11/21 reflecting a 36.8% total body weight loss and a weight loss of 71.4 pounds since surgery (operative weight 236.2 pounds) reflecting a 30.2% TBWL since surgery.? No complaints of nausea, emesis, abdominal pain or reflux. Reports infrequent but normal bowel movements every 1-2 days. Taking fusion bariatric MVI and Leo +D.? Overall doing well and feels as though her energy level is improved.? States she is extremely happy with her weight loss and energy level. She does complain of excess skin of her abdomen. This is uncomfortable during exercise as it bounces up and down causing some pain and discomfort. She has to wear special tight sh orts to exercise so her abdominal skin is less mobile and this is a challenge for her durning exercise. She also describes intermittent itching and an occasional odor. She has to shower twice daily to manage the excess skin concerns. She has had a rash under the skin fold in the past that she treated with an OTC antifungal with zinc upon the advice of the pharmacist. The rash slowly resolved over the course of about 1 week. Present meal plan includes: Pure protein 1 scoop, in almond milk, 730 am or yogurt Pure protein bar and sometimes yogurt meal 6-7 forks protein/4 forks veg 32 oz free water daily ? Exercise routine includes: none in a month due to recent lap CCY Treadmill 4 days per week 350-400 leo per day at [employer]. Any post op complications: none SAUL: never DM: never HTN: resolved Hyperlipidemia: never GERD:?0-5 scale ??0 = no symptoms ??1 = symptoms noticeable but not bothersome 2 =symptoms bothersome but not daily ? 3 = symptoms bothersome and daily 4 = symptoms affect daily activities 5 = symptoms are incapacitating, unable to do daily activities ? How bad is the heartburn: 0 ? Heartburn while lying down: 0 ? Heartburn when standing up: 0 ? Heartburn after meals: 0 ? Does heartburn change your diet: 0 ? Does heartburn wake you up from sleep: 0 ? Do you have difficulty swallowin ? Do you have pain with swallowin ? If you take medicine for your reflux, does this affect your daily life: 0 Satisfaction with present condition - satisfied or not satisfied: satisfied. PFSH Medical History History of COVID-19 No pertinent past medical history BMI 38.0-38.9,adult Obese Vitamin B12 deficiency Adjustment disorder Surgical History Hx laparoscopic cholecystectomy S/P laparoscopic sleeve gastrectomy Hx of tubal ligation Family History Mother No problems noted. Father No problems noted. Brother No problems noted. Brother No problems noted. Sister No problems noted. Sister No problems noted. Sister No problems noted. Sister No problems noted. Sister Breast cancer Daughter No problems noted. Daughter No problems noted. Daughter No problems noted. Daughter No problems noted. Son No problems noted. Social History Household Members: Spouse Housing: House Are you a primary early breastfeeding care specialist to a significant other at home: No Do you presently have visiting nurse or other home services: No Alcohol intake: never Patient Tobacco Use Status: Never used Tobacco Second Hand Smoke Exposure: No service: No Current occupational status: employed Review of Systems Const All systems reviewed & are unremarkable except as noted in HPI and below Physical Exam Const General: cooperative and no acute distress Orientation/consciousness: patient oriented x3 Resp Effort & Inspection: normal respiratory effort Auscultation: clear to auscultation bilaterally Cardio Rate: regular rate Rhythm: regular rhythm GI Inspection: Yes normal to inspection and Yes incision (well healed) Palpation (GI): Soft to palpation and no masses Skin Other: excess skin of abdomen, pannus grade 2 Neuro General: patient oriented x3 Assessment & Plan Assessment & Plan (1) S/P laparoscopic sleeve gastrectomy: Comment: 01/16/2022 Code(s): Z98.84 - Bariatric surgery status Plan: Has done excellent, continue meal plan and exercise plan (off exercise plan until cleared by Dr Nicole s/p lap ccy) rtc 3 months (2) Excess skin: Code(s): L98.7 - Excessive and redundant skin and subcutaneous tissue Plan: she will contact the office immediately if any rash, maintain healthy weight. may likely need panniculectomy will follow closely Orders: Orders Vitamin D 25-OH Total Today K76.0 - Fatty (change of) liver, not elsewhere classified, Z98.84 - Bariatric surgery status Vitamin A Today K76.0 - Fatty (change of) liver, not elsewhere classified, Z98.84 - Bariatric surgery status Vitamin B1 Today K76.0 - Fatty (change of) liver, not elsewhere classified, Z98.84 - Bariatric surgery status TSH reflex Free T4 Today K76.0 - Fatty (change of) liver, not elsewhere classified, Z98.84 - Bariatric surgery status PTHI Today K76.0 - Fatty (change of) liver, not elsewhere classified, Z98.84 - Bariatric surgery status Zinc Today K76.0 - Fatty (change of) liver, not elsewhere classified, Z98.84 - Bariatric surgery status IRON PROFILE Today K76.0 - Fatty (change of) liver, not elsewhere classified, Z98.84 - Bariatric surgery status Ferritin Today K76.0 - Fatty (change of) liver, not elsewhere classified, Z98.84 - Bariatric surgery status Vitamin B12 and Folate Today K76.0 - Fatty (change of) liver, not elsewhere classified, Z98.84 - Bariatric surgery status Coding Level of Care Code Est Pt Level 4 (58805) Diagnoses S/P laparoscopic sleeve gastrectomy Z98.84 Excess skin L98.7 Time Spent (min) 40
[2023-01-25 12:13] VITALS: BP 136/71; PULSE 71; TEMP 36.5; O2SAT 99; BMI 26.6
== END 2023-01-25 12:57 | disposition home or self-care (01) ==
PROVIDERS: PCP Internal Medicine; Visit Provider Physician Assistant Surgical
DX: L98.7 Excessive and redundant skin and subcutaneous tissue (principal); Z98.84 Bariatric surgery status
CPT/HCPCS: 99214

== ENCOUNTER → 2023-01-25 12:03 | Outpatient (BNVA) | payer OTHER, SELFPAY | PROVIDERS: PCP Internal Medicine; Visit Provider Physician Assistant Surgical | DX: L98.7 Excessive and redundant skin and subcutaneous tissue (principal); Z98.84 Bariatric surgery status | CPT/HCPCS: 99212 ==

== ENCOUNTER 2023-01-31 09:14 | Outpatient (AMB) | payer OTHER, SELFPAY ==
--- NOTE | 2023-01-31 09:19 | MHC.OFFVIS ---
Intake Vital Signs 01/31/23 09:21 Height 5 ft 6 in BP 110/72 Blood Pressure Location Rt brachial Position Sitting Pulse 72 Pulse Source Pulse Oximeter Temp 97.5 F Temp Source Temporal Artery Scan Pulse Oximetry (%) 100 Oxygen Delivery Method Room Air Intake Visit Reasons: (OV) 6 Days PO Lap Radha 12/25/22 Police Aide Required: No Maintenance Pipefitter: Maintenance Pipefitter offered & declined Allergies No Known Allergies Allergy (Verified 01/31/23 09:22) Medication List - Last Reconciled 01/31/23 by Niles Nicole MD calcium carbonate (Calcium) 600 mg PO DAILY multivitamin 1 tab PO DAILY HPI HPI Comments History of Present Illness Details The patient returns for follow-up after a laparoscopic cholecystectomy for chronic calculous cholecystitis. The patient presented to the emergency room and was concerning for acute on chronic cholecystitis. Since surgery, she reports that she is doing well. She is tolerating her diet. 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 She is here for evaluation & clearance for full-duty at work. She denies any significant symptoms or interval change to her health history. [facility] Medical History History of COVID-19 No pertinent past medical history BMI 38.0-38.9,adult Obese Vitamin B12 deficiency Adjustment disorder Surgical History Hx laparoscopic cholecystectomy S/P laparoscopic sleeve gastrectomy Hx of tubal ligation Family History Mother No problems noted. Father No problems noted. Brother No problems noted. Brother No problems noted. Sister No problems noted. Sister No problems noted. Sister No problems noted. Sister No problems noted. Sister Breast cancer Daughter No problems noted. Daughter No problems noted. Daughter No problems noted. Daughter No problems noted. Son No problems noted. Social History Household Members: Spouse Housing: House Are you a primary care management coordinator to a significant other at home: No Do you presently have visiting nurse or other home services: No Alcohol intake: never Patient Tobacco Use Status: Never used Tobacco Second Hand Smoke Exposure: No service: No Current occupational status: employed Physical Exam Vital Signs: Last Vital Signs Temp 97.5 F 01/31/23 09:21 Pulse 72 01/31/23 09:21 BP 110/72 01/31/23 09:21 Pulse Ox 100 01/31/23 09:21 Oxygen Delivery Method Room Air 01/31/23 09:21 On exam, she is nontoxic and in good spirits Sclera remain anicteric She is in no acute respiratory distress Her abdominal incisions are well healed with no evidence of hernias. No tenderness is present redundant skin from her abdomen is noted. Results Reviewed Results Reviewed: Pathology confirmed chronic calculous cholecystitis MRCP done on 12/26/2022 showed no evidence of intraluminal debris or stones; this was done due to ongoing pain and significant elevation of her LFTs. Her lipase was elevated at the time of admission. Assessment & Plan Assessment & Plan (1) S/P laparoscopic cholecystectomy: Code(s): Z90.49 - Acquired absence of other specified parts of digestive tract (2) Excess skin: Code(s): L98.7 - Excessive and redundant skin and subcutaneous tissue (3) S/P laparoscopic sleeve gastrectomy: Comment: 01/16/2022 Code(s): Z98.84 - Bariatric surgery status Plan The patient is congratulated on her ongoing weight loss. She will follow up with the bariatric team regarding her redundant abdominal wall skin and long-term follow-up. Patient has reached maximum recovery regarding her lap choly and can resume regular activities without restriction. She is advised to gradually increase her activity over the next week and was provided a work note. She is otherwise discharged from my care at this time and will see her again if a new general surgery issue arises. Coding Level of Care Code Global (69306) Diagnoses S/P laparoscopic cholecystectomy Z90.49 Excess skin L98.7 S/P laparoscopic sleeve gastrectomy Z98.84
[2023-01-31 09:21] VITALS: BP 110/72; PULSE 72; TEMP 36.4; O2SAT 100
== END 2023-01-31 09:29 | disposition home or self-care (01) ==
PROVIDERS: PCP Internal Medicine; Visit Provider Surgery
DX: Z90.49 Acquired absence of other specified parts of digestive tract (principal); L98.7 Excessive and redundant skin and subcutaneous tissue; Z98.84 Bariatric surgery status
CPT/HCPCS: 99024

== ENCOUNTER → 2023-01-31 09:14 | Outpatient (BNVA) | payer OTHER, SELFPAY | PROVIDERS: PCP Internal Medicine; Visit Provider Surgery ==

== ENCOUNTER 2023-05-01 16:11 | Outpatient (AMB) | payer OTHER, SELFPAY ==
--- NOTE | 2023-05-01 15:41 | MHC.OFFVISWM ---
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 Presents for 1 year 4 month post op visit. Weight today is 167.2 pounds, with a BMI of 27.? There has been a 93.6 pound weight loss,(initial weight 260.8 pounds) since starting the program on 10/11/21 reflecting a 35.8% total body weight loss and a weight loss of 69 pounds since surgery (operative weight 236.2 pounds) reflecting a 29.2% TBWL since surgery.? No complaints of nausea, emesis, abdominal pain or reflux. Reports infrequent but normal bowel movements every 1-2 days. Taking fusion bariatric MVI and Leo +D.? Overall doing well and feels as though her energy level is improved.? States she is extremely happy with her weight loss and energy level. She does complain of excess skin of her abdomen. This is uncomfortable during exercise as it bounces up and down causing some pain and discomfort. She has to wear special tight shorts to exercise so her abdominal skin is less mobile and this is a challenge for her during exercise. She also describes intermittent itching and an occasional odor. She has to shower twice daily to manage the excess skin concerns. She has had a rash under the skin fold in the past that she treated with an OTC antifungal with zinc upon the advice of the pharmacist. The rash slowly resolved over the course of about 1 week. Present meal plan includes: Pure protein 1 scoop, in 8 oz almond milk, 730 am yogurt w berries meal 4-5 forks protein/4 forks veg 48 oz free water daily ? Exercise routine includes: PF gym, 1-3 days per week recently due to her having surgery. [facility] Medical History History of COVID-19 No pertinent past medical history BMI 38.0-38.9,adult Obese Vitamin B12 deficiency Adjustment disorder Surgical History Hx laparoscopic cholecystectomy S/P laparoscopic sleeve gastrectomy Hx of tubal ligation Family History Mother No problems noted. Father No problems noted. Brother No problems noted. Brother No problems noted. Sister No problems noted. Sister No problems noted. Sister No problems noted. Sister No problems noted. Sister Breast cancer Daughter No problems noted. Daughter No problems noted. Daughter No problems noted. Daughter No problems noted. Son No problems noted. Social History Household Members: Spouse Housing: House Are you a primary manager progressive care to a significant other at home: No Do you presently have visiting nurse or other home services: No Alcohol intake: never Patient Tobacco Use Status: Never used Tobacco Second Hand Smoke Exposure: No service: No Current occupational status: employed Assessment & Plan Assessment & Plan (1) Overweight (BMI 25.0-29.9): Code(s): E66.3 - Overweight Plan: Patient will continue her current your plan. She previously was using pure protein bars however will add 1/2 of a pure protein bar to her meal plan. She was strongly encouraged to return to the gym. She previously was caring for her who recently had surgery who is now recovering and she should have more time to return to the gym. She will return to the office in 2 months time to come in for her 18 month follow-up appointment. She will text me weekly with her weights and if there are any questions or concerns. (2) Excess skin: Code(s): L98.7 - Excessive and redundant skin and subcutaneous tissue Plan: She continues to have intermittent rash and redness to the abdominal fold. Will prescribe clotrimazole to be used sparingly b.i.d. if the redness and rash recurs. She was encouraged to place a barrier between the skin folds with clothing. She will call me with any questions or concerns. Medications: New clotrimazole 1% (Antifungal (clotrimazole)) use sparingly for 7-10 days if rash returns 1 appl topical BID PRN 45 grams 1RF rash Telehealth Telehealth Location of provider rendering services: practice address Location of patient: address on file Patient Identification confirmed using: Name, : Yes Telehealth method: voice only Patient verbally consented to treatment: Yes Patient verbally consented to billing insurance company: Yes Patient informed of any privacy concerns related to visit: Yes Minutes spent on Phone/Video with Pt.: 15 Coding Level of Care Code Tele Est Pt Level 3 (20978) Diagnoses Overweight (BMI 25.0-29.9) E66.3 Excess skin L98.7 Time Spent (min) 20
[2023-05-01 15:58] VITALS: BMI 27.0
== END 2023-05-01 16:34 | disposition home or self-care (01) ==
LOC: HO.HBS 16:11
PROVIDERS: PCP Internal Medicine; Visit Provider Physician Assistant Surgical
DX: E66.3 Overweight (principal); L98.7 Excessive and redundant skin and subcutaneous tissue
CPT/HCPCS: 99213

== ENCOUNTER → 2023-05-01 16:11 | Outpatient (BNVA) | payer OTHER, SELFPAY | PROVIDERS: PCP Internal Medicine; Visit Provider Physician Assistant Surgical | DX: Z98.84 Bariatric surgery status (principal); K76.0 Fatty (change of) liver, not elsewhere classified ==

== ENCOUNTER 2023-07-02 09:08 | Outpatient (AMB) | payer OTHER, SELFPAY ==
--- NOTE | 2023-07-02 08:23 | MHC.OFFVISWM ---
Intake VS Expanded 07/02/23 08:25 Height 5 ft 6 in Weight 164 lb 9.6 oz BMI 26.6 Intake Visit Reasons: (tV) PO LSG 01/16/22 Professional Architect Required: No Allergies No Known Allergies Allergy (Verified 01/31/23 09:22) Medication List - Last Reconciled 07/02/23 by BEBETO Del Rosario calcium carbonate (Calcium) 600 mg PO DAILY clotrimazole 1% (Antifungal (clotrimazole)) 1 appl topical BID PRN multivitamin 1 tab PO DAILY HPI HPI Comments History of Present Illness Details This?a?42?yo female who is s/p LSG without hiatal hernia repair on?01/16/[address] Lechuga. Presents for 1 year 5.5 month post op visit. Weight today is 164.6 pounds, with a BMI of 26.6.? There has been a 96.2 pound weight loss,(initial weight 260.8 pounds) since starting the program on 10/11/21 reflecting a 36.8% total body weight loss and a weight loss of 71.6 pounds since surgery (operative weight 236.2 pounds) reflecting a 30.3% TBWL since surgery.? No complaints of nausea, emesis, abdominal pain or reflux. Reports infrequent but normal bowel movements every 1-2 days. Taking fusion bariatric MVI and Leo +D.? Overall doing well and feels as though her energy level is improved.? States she is extremely happy with her weight loss and energy level. She does complain of excess skin of her abdomen. This is uncomfortable during exercise as it bounces up and down causing some pain and discomfort. She has to wear special tight shorts to exercise so her abdominal skin is less mobile and this is a challenge for her during exercise. She also describes itching and an occasional odor. She has to shower twice daily to manage the excess skin concerns. She has a rash under the skin fold of her abdomen and she has had to use the prescribed clotrimazole cream with good effect. She has to use the cream 3-4 days of the week. She describes it as a constant mccarthy because she has increased moisture while exercising which she tries to do 4-5 days per week. Present meal plan includes: Pure protein 1 scoop, in 8 oz almond milk, 730 am yogurt w berries meal 4-5 forks protein/4 forks veg 1/2 pure protein bar 48 oz free water daily? 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 [facility] Medical History History of COVID-19 No pertinent past medical history BMI 38.0-38.9,adult Obese Vitamin B12 deficiency Adjustment disorder Surgical History Hx laparoscopic cholecystectomy S/P laparoscopic sleeve gastrectomy Hx of tubal ligation Family History (Reviewed 07/02/23 @ 09: by BEBETO Del Rosario) Mother No problems noted. Father No problems noted. Brother No problems noted. Brother No problems noted. Sister No problems noted. Sister No problems noted. Sister No problems noted. Sister No problems noted. Sister Breast cancer Daughter No problems noted. Daughter No problems noted. Daughter No problems noted. Daughter No problems noted. Son No problems noted. Social History Household Members: Spouse Housing: House Are you a primary child care associate to a significant other at home: No Do you presently have visiting nurse or other home services: No Alcohol intake: never Patient Tobacco Use Status: Never used Tobacco Second Hand Smoke Exposure: No service: No Current occupational status: employed Assessment & Plan Assessment & Plan (1) S/P laparoscopic sleeve gastrectomy: Comment: 01/16/2022 Code(s): Z98.84 - Bariatric surgery status Plan: overall doing very well. Continue meal plan and exercise plan. Has had a stable weight over the last 6 months. (2) Excess skin: Code(s): L98.7 - Excessive and redundant skin and subcutaneous tissue Plan: significant adverse effect on ADLs including hygene, clothing, difficulty with discomfort including itch and pain. Needs panniculectomy. Has had stable healthy weight for the last 6 months rtc 2-3 weeks for in-person appointment for photodocumentation to send to insurance for medically necessary skin removal surgery approval Continue clotrimazole as this is the only thing that is helping her and text me if close ro running out to refill Telehealth Telehealth Location of provider rendering services: practice address Location of patient: other Patient Identification confirmed using: Name, : Yes Telehealth method: voice only Patient verbally consented to treatment: Yes Patient verbally consented to billing insurance company: Yes Patient informed of any privacy concerns related to visit: Yes Minutes spent on Phone/Video with Pt.: 15 Coding Level of Care Code Tele Est Pt Level 3 (11194) Diagnoses S/P laparoscopic sleeve gastrectomy Z98.84 Excess skin L98.7 Time Spent (min) 20
[2023-07-02 08:25] VITALS: BMI 26.6
== END 2023-07-02 09:30 | disposition home or self-care (01) ==
LOC: HO.HBS 09:08
PROVIDERS: PCP Internal Medicine; Visit Provider Physician Assistant Surgical
DX: L98.7 Excessive and redundant skin and subcutaneous tissue (principal); Z90.3 Acquired absence of stomach [part of]; Z98.84 Bariatric surgery status
CPT/HCPCS: 99213

== ENCOUNTER → 2023-07-02 09:08 | Outpatient (BNVA) | payer OTHER, SELFPAY | PROVIDERS: PCP Internal Medicine; Visit Provider Physician Assistant Surgical ==

== ENCOUNTER 2023-07-24 10:03 | Outpatient (AMB) | payer OTHER, SELFPAY ==
--- NOTE | 2023-07-24 10:05 | A.OFFVIS_ITS ---
Intake VS Expanded 07/24/23 10:13 BP 134/81 Blood Pressure Location Rt brachial Blood Pressure Position Sitting Pulse 76 Pulse Source Pulse Oximeter Temp 96.6 F L Temperature Source Temporal Artery Scan Pulse Oximetry 99 Oxygen Delivery Method Room Air Height 5 ft 6 in Weight 168 lb BMI 27.1 Body Fat % 35.3 Body Fat Mass 59.4 Fat Free Mass 108.6 Visceral Fat Rating 6.0 Body Water % 46.2 Body Water Mass 77.6 Muscle Mass/Score 103.2 Basal Metabolic Rate/Score 1,489 Intake Visit Reasons: (OV) PO LSG 01/16/22 Behavioral Geneticist Required: No Allergies No Known Allergies Allergy (Verified 07/24/23 10:07) Medication List - Last Reconciled 07/24/23 by BEBETO Del Rosario calcium carbonate (Calcium) 600 mg PO DAILY clotrimazole 1% (Antifungal (clotrimazole)) 1 appl topical BID PRN multivitamin 1 tab PO DAILY HPI HPI Comments History of Present Illness Details This?a?42?yo female who is s/p LSG without hiatal hernia repair on?01/16/[address] Lechuga. Presents for 18 month post op visit. Weight today is 168 pounds, with a BMI of 27.1.? There has been a 92.8 pound weight loss,(initial weight 260.8 pounds) since starting the program on 10/11/21 reflecting a 35.5% total body weight loss and a weight loss of 68.2 pounds since surgery (operative weight 236.2 pounds) reflecting a 28.8% TBWL since surgery.? No complaints of nausea, emesis, abdominal pain or reflux. Reports infrequent but normal bowel movements every 1-2 days. Taking fusion bariatric MVI and Leo +D.? Overall doing well and feels as though her energy level is improved.? States she is extremely happy with her weight loss and energy level. She does complain of excess skin of her abdomen. This is uncomfortable during exercise as it bounces up and down causing some pain and discomfort. She has to wear special tight shorts to exercise so her abdominal skin is less mobile and this is a challenge for her during exercise. She also describes itching and an occasional odor. She has to shower twice daily to manage the excess skin concerns. She has a rash under the skin fold of her abdomen and she has had to use the prescribed clotrimazole cream with good effect. She has to use the cream 3-4 days of the week. She describes it as a constant mccarthy because she has increased moisture while exercising which she tries to do 4-5 days per week. She just returned from [place] on Saturday where she went to mourn the loss of her grandmother. This was very sad for her and her family. She was unable to exercise over the last 10 days and her meal plan was different while she was away in [place]. Aside from this past 10 days, she has maintained a healthy and stable weight over the last 6 months. Present meal plan includes: Pure protein 1 scoop, in 8 oz almond milk, 730 am yogurt w berries meal 4-5 forks protein/4 forks veg 1/2 pure protein bar 64 oz free water daily? 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 [facility] Medical History History of COVID-19 No pertinent past medical history BMI 38.0-38.9,adult Obese Vitamin B12 deficiency Adjustment disorder Surgical History Hx laparoscopic cholecystectomy S/P laparoscopic sleeve gastrectomy Hx of tubal ligation Family History Mother No problems noted. Father No problems noted. Brother No problems noted. Brother No problems noted. Sister No problems noted. Sister No problems noted. Sister No problems noted. Sister No problems noted. Sister Breast cancer Daughter No problems noted. Daughter No problems noted. Daughter No problems noted. Daughter No problems noted. Son No problems noted. Social History Household Members: Spouse Housing: House Are you a primary early breastfeeding care specialist to a significant other at home: No Do you presently have visiting nurse or other home services: No Alcohol intake: never Patient Tobacco Use Status: Never used Tobacco Second Hand Smoke Exposure: No service: No Current occupational status: employed Physical Exam Vital Signs: Last Vital Signs Temp 96.6 F L 07/24/23 10:13 Pulse 76 07/24/23 10:13 BP 134/81 07/24/23 10:13 Pulse Ox 99 07/24/23 10:13 Oxygen Delivery Method Room Air 07/24/23 10:13 BMI result Body Mass Index 27.1 Const General: healthy appearing and no acute distress Resp Effort & Inspection: normal respiratory effort Auscultation: clear to auscultation bilaterally Cardio Rate: regular rate Rhythm: regular rhythm GI Auscultation: normal bowel sounds Skin Other: Grade 2 pannus with no acute infection at today's visit. Extrem General: Yes normal to inspection Assessment & Plan Assessment & Plan (1) Excess skin: Code(s): L98.7 - Excessive and redundant skin and subcutaneous tissue Plan: significant adverse effect on ADLs including hygene, clothing, difficulty with d iscomfort including itch and pain. Needs panniculectomy. Has had stable healthy weight for the last 6 months Has had an over 90 lb weight loss or 35.5% total body weight loss since initiating the medical weight loss program in 2021. She has had a 68 lb weight loss since surgery, 18 months ago, correlating to approximately 28.2% total body weight loss. We will submit documentation to her insurance company for a medically necessary skin removal surgery. In the meantime, she will continue with clotrimazole as needed. (2) S/P laparoscopic sleeve gastrectomy: Comment: 01/16/2022 Code(s): Z98.84 - Bariatric surgery status Plan: Continue current meal plan. Continue resumption of exercise. She is doing the best that she can with exercise although affected by the excess skin of her abdomen. Aside from the last 10 days when she was in [place] morning the loss of her grandmother, she has been following her meal plan and exercise plan consistently and has maintained a consistent and healthy weight over the last 6 months. Check 18 month postop labs. Orders: Orders Insulin Today K76.0 - Fatty (change of) liver, not elsewhere classified, R74.8 - Abnormal levels of other serum enzymes, Z98.84 - Bariatric surgery status Complete Blood Count Auto Diff Today K76.0 - Fatty (change of) liver, not elsewhere classified, R74.8 - Abnormal levels of other serum enzymes, Z98.84 - Bariatric surgery status Vitamin A Today K76.0 - Fatty (change of) liver, not elsewhere classified, R74.8 - Abnormal levels of other serum enzymes, Z98.84 - Bariatric surgery status C Reactive Protein Today K76.0 - Fatty (change of) liver, not elsewhere cla ssified, R74.8 - Abnormal levels of other serum enzymes, Z98.84 - Bariatric surgery status TSH reflex Free T4 Today K76.0 - Fatty (change of) liver, not elsewhere classified, R74.8 - Abnormal levels of other serum enzymes, Z98.84 - Bariatric surgery status Vitamin D 25-OH Total Today K76.0 - Fatty (change of) liver, not elsewhere classified, R74.8 - Abnormal levels of other serum enzymes, Z98.84 - Bariatric surgery status Hemoglobin A1c Today K76.0 - Fatty (change of) liver, not elsewhere classified, R74.8 - Abnormal levels of other serum enzymes, Z98.84 - Bariatric surgery status Lipid Panel Today K76.0 - Fatty (change of) liver, not elsewhere classified, R74.8 - Abnormal levels of other serum enzymes, Z98.84 - Bariatric surgery status IRON PROFILE Today K76.0 - Fatty (change of) liver, not elsewhere classified, R74.8 - Abnormal levels of other serum enzymes, Z98.84 - Bariatric surgery status Vitamin B12 and Folate Today K76.0 - Fatty (change of) liver, not elsewhere classified, R74.8 - Abnormal levels of other serum enzymes, Z98.84 - Bariatric surgery status Zinc Today K76.0 - Fatty (change of) liver, not elsewhere classified, R74.8 - Abnormal levels of other serum enzymes, Z98.84 - Bariatric surgery status Vitamin B1 Today K76.0 - Fatty (change of) liver, not elsewhere classified, R74.8 - Abnormal levels of other serum enzymes, Z98.84 - Bariatric surgery stat us Ferritin Today K76.0 - Fatty (change of) liver, not elsewhere classified, R74.8 - Abnormal levels of other serum enzymes, Z98.84 - Bariatric surgery status PTHI Today K76.0 - Fatty (change of) liver, not elsewhere classified, R74.8 - Abnormal levels of other serum enzymes, Z98.84 - Bariatric surgery status Basic Metabolic Panel Today K76.0 - Fatty (change of) liver, not elsewhere classified, R74.8 - Abnormal levels of other serum enzymes, Z98.84 - Bariatric surgery status Coding Level of Care Code Est Pt Level 4 (01967) Diagnoses Excess skin L98.7 S/P laparoscopic sleeve gastrectomy Z98.84
[2023-07-24 10:13] VITALS: BP 134/81; PULSE 76; TEMP 35.9; O2SAT 99; BMI 27.1
== END 2023-07-24 10:52 | disposition home or self-care (01) ==
PROVIDERS: PCP Internal Medicine; Visit Provider Physician Assistant Surgical
DX: L98.7 Excessive and redundant skin and subcutaneous tissue (principal); Z98.84 Bariatric surgery status
CPT/HCPCS: 99214

== ENCOUNTER → 2023-07-24 10:03 | Outpatient (BNVA) | payer OTHER, SELFPAY | PROVIDERS: PCP Internal Medicine; Visit Provider Physician Assistant Surgical | DX: L98.7 Excessive and redundant skin and subcutaneous tissue (principal); Z98.84 Bariatric surgery status | CPT/HCPCS: 99212 ==

== ENCOUNTER 2023-08-23 08:14 | Outpatient (AMB) | payer OTHER, SELFPAY ==
--- NOTE | 2023-08-23 11:34 | A.OFFVIS_ITS ---
Intake VS Expanded 08/23/23 11:58 Height 5 ft 6 in Weight 169 lb 6 oz BMI 27.3 Body Fat % 32.9 Body Fat Mass 55.7 Fat Free Mass 113.8 Visceral Fat Rating 10 Body Water % 46 Body Water Mass 78 Basal Metabolic Rate/Score 1,484 Intake Visit Reasons: TV Pre Op Panniculectomy 09/03/23 Allergies No Known Allergies Allergy (Verified 08/23/23 11:35) Medication List - Last Reconciled 08/23/23 by Aubrey Lechuga MD calcium carbonate (Calcium) 600 mg PO DAILY cephalexin 500 mg PO Q12H clotrimazole 1% (Antifungal (clotrimazole)) 1 appl topical BID PRN docusate sodium (Colace) 100 mg PO DAILY multivitamin 1 tab PO DAILY HPI TV Pre Op Panniculectomy 09/03/23 HPI Details Start time: 11.34am, End time: 12.04pm ?I spent 25 minutes speaking with the patient on the phone plus an additional 5 minutes reviewing and updating records for a total of 30 minutes HPI Comments History of Present Illness Details Overall weight loss: 91.6lbs, or 35.1% TBWL Is doing one Pure protein shake (1 scoop in almond milk), 1 Pure protein bar and one meal (protein and vegetables) Exercise: Gym x4/wk doing treadmill for 400 and weight exercises PFSH Medical History (Updated 08/23/23 @ 11:31 by Aubrey Lechuga MD) History of COVID-19 BMI 38.0-38.9,adult Obese Vitamin B12 deficiency Adjustment disorder Surgical History Hx laparoscopic cholecystectomy S/P laparoscopic sleeve gastrectomy Hx of tubal ligation Family History Mother No problems noted. Father No problems noted. Brother No problems noted. Brother No problems noted. Sister No problems noted. Sister No problems noted. Sister No problems noted. Sister No problems noted. Sister Breast cancer Daughter No problems noted. Daughter No problems noted. Daughter No problems noted. Daughter No problems noted. Son No problems noted. Social History (Updated 08/22/23 @ 13:39 by Raven Clinton RN) Household Members: Spouse and Family Housing: House Do you presently have visiting nurse or other home services: No 75 years or older and lives alone: No Alcohol intake: never Patient Tobacco Use Status: Never used Tobacco Second Hand Smoke Exposure: No Use of substances other than those prescribed or required for medical reasons: No service: No Current occupational status: employed Assessment & Plan Assessment & Plan (1) Excess skin: Code(s): L98.7 - Excessive and redundant skin and subcutaneous tissue Plan: 1. Plan for panniculectomy. Risks of infection, bleeding, asymmetry, wound dehiscence and blood clots were discussed with the patient. 2. You will have a drain the abdomen that may stay a few weeks before it may be removed 3. You will need to be doing sponge baths the first 1-2 weeks. No showers. You need to have help at home to get you up and limit your activities as much as possible for at least the 4-6 weeks after surgery 4. We will arrange for a visiting nurse to come at home to help you with dressing changes and send me pictures of the procedures. We will send at your home supplies for the dressing changes. 5. Change nutritional plan to one Pure protein shake with ONE scoop in 8oz almond milk, one Pure protein shake (HALF scoop in 8oz almond milk), one Pure protein bar and one meal (4 forks of protein and 4 forks of salad or vegetables), or one shake, 1.5 Pure protein bars and one meal. This will improve weight loss and healing after surgery. 6. Continue all vitamins 7. Do blood work not fasting any day between Saturday08/26/23 and Saturday08/30/23 and cloth picker the antibiotic prescription from your pharmacy 8. Risks and complications were discussed the possibility of bleeding that may require transfusion, loss of the umbilicus, wound dehiscence or infection, dog ears , flap asymmetry. We also discussed the importance of strict avoidance of weight lifting. 9. Avoid aspirin, motrin, ibuprofen, Aleve, Advil, Naproxyn. Only Tylenol is OK Orders: Orders Hemoglobin A1c Today K91.2 - Postsurgical malabsorption, not elsewhere classified, Z90.3 - Acquired absence of stomach [part of] Prothrombin Time INR Today K91.2 - Postsurgical malabsorption, not elsewhere classified, Z90.3 - Acquired absence of stomach [part of] Vitamin B1 Today K91.2 - Postsurgical malabsorption, not elsewhere classified, Z90.3 - Acquired absence of stomach [part of] Lipid Panel Today K91.2 - Postsurgical malabsorption, not elsewhere classified, Z90.3 - Acquired absence of stomach [part of] Vitamin B12 Today K91.2 - Postsurgical malabsorption, not elsewhere classified, Z90.3 - Acquired absence of stomach [part of] Partial Thromboplastin Time Today K91.2 - Postsurgical malabsorption, not elsewhere classified, Z90.3 - Acquired absence of stomach [part of] Zinc Today K91.2 - Postsurgical malabsorption, not elsewhere classified, Z90.3 - Acquired absence of stomach [part of] Comprehensive Met. Panel Today K91.2 - Postsurgical malabsorption, not else where classified, Z90.3 - Acquired absence of stomach [part of] TSH reflex Free T4 Today K91.2 - Postsurgical malabsorption, not elsewhere classified, Z90.3 - Acquired absence of stomach [part of] Vitamin A Today K91.2 - Postsurgical malabsorption, not elsewhere classified, Z90.3 - Acquired absence of stomach [part of] Type and Screen Today K91.2 - Postsurgical malabsorption, not elsewhere classified, Z90.3 - Acquired absence of stomach [part of] C Reactive Protein Today K91.2 - Postsurgical malabsorption, not elsewhere classified, Z90.3 - Acquired absence of stomach [part of] Vitamin D 25-OH Total Today K91.2 - Postsurgical malabsorption, not elsewhere classified, Z90.3 - Acquired absence of stomach [part of] Complete Blood Count Auto Diff Today K91.2 - Postsurgical malabsorption, not elsewhere classified, Z90.3 - Acquired absence of stomach [part of] Ferritin Today K91.2 - Postsurgical malabsorption, not elsewhere classified, Z90.3 - Acquired absence of stomach [part of] IRON PROFILE Today K91.2 - Postsurgical malabsorption, not elsewhere classified, Z90.3 - Acquired absence of stomach [part of] Medications: New cephalexin 500 mg PO Q12H 60 caps 2RF M79.3 - Panniculitis, unspecified docusate sodium (Colace) 100 mg PO DAILY 90 caps 0RF K59.00 - Constipation, unspecified Telehealth Telehealth Location of provider rendering services: practice address Location of patient: address on file Patient Identification confirmed using: Name, : Yes Telehealth method: voice only Patient verbally consented to treatment: Yes Patient verbally consented to billing insurance company: Yes Patient informed of any privacy concerns related to visit: Yes Minutes spent on Phone/Video with Pt.: 30 Coding Level of Care Code Tele Est Pt Level 4 (35336) Diagnoses Excess skin L98.7 Time Spent (min) 30
[2023-08-23 11:58] VITALS: BMI 27.3
== END 2023-08-23 12:05 | disposition home or self-care (01) ==
LOC: HO.HBS 08:14
PROVIDERS: PCP Internal Medicine; Visit Provider Surgery
DX: L98.7 Excessive and redundant skin and subcutaneous tissue (principal)
CPT/HCPCS: 99214

== ENCOUNTER → 2023-08-23 08:14 | Outpatient (BNVA) | payer OTHER, SELFPAY | PROVIDERS: PCP Internal Medicine; Visit Provider Surgery ==

== ENCOUNTER → 2023-08-28 13:08 | Outpatient (BNVA) | payer OTHER, SELFPAY | PROVIDERS: PCP Internal Medicine; Visit Provider Surgery ==

== ENCOUNTER 2023-09-03 09:26 | Day surgery (SDC) | payer OTHER, SELFPAY ==
[2023-08-22 13:34] VITALS: BMI 27.4
[2023-08-30 13:55] LABS: MANUAL DIFF FLAG NO
[2023-08-30 15:20] LABS: Basophils Percent Auto 0.5 % (0-2); Eosinophils Absolute Auto 0.1 X10*3/uL (0.0-0.4); Eosinophils Percent Auto 1.2 % (0-4); Hematocrit 37.6 % (37.0-47.0); Hemoglobin 12.1 g/dl (12.0-16.0); Imm Gran Abs Auto 0.01 X10*3/uL (0.00-0.03); Imm Gran Pct Auto 0.2 % (0.0-0.4); Lymphocytes Absolute Auto 2.2 X10*3/uL (1.2-4.9); Lymphocytes Percent Auto 38.2 % (20-40); Mean Corpuscular HGB Conc 32.2 g/dl (31.0-35.0); Mean Corpuscular Hemoglobin 26.6 pg (27.0-33.0); Mean Corpuscular Volume 82.6 fL (80.0-98.0); Mean Platelet Volume 9.2 fL (9.4-12.3); Monocytes Absolute Auto 0.5 X10*3/uL (0.1-1.2); Monocytes Percent Auto 9.1 % (2-11); Neutrophils Absolute Auto 2.9 x10*3/uL (2.0-8.3); Neutrophils Percent Auto 50.8 % (45-73); Platelet Count 223 X10*3/uL (160-400); Red Blood Count 4.55 X10*6/uL (4.20-5.50); Red Cell Distribution Width 12.8 % (11.0-16.0); White Blood Count 5.7 X10*3/uL (4.8-10.8)
[2023-08-30 15:28] LABS: Estimated Average Glucose 100 mg/dL; Hemoglobin A1c % 5.1 % (<6.0)
[2023-08-30 15:30] LABS: Prothrombin Time 12.5 SEC (11.1-13.3)
[2023-08-30 15:33] LABS: Partial Thromboplastin Time 37.2 SEC (26.0-36.8)
[2023-08-30 15:53] LABS: Alanine Aminotransferase 9 U/L (0-31); Albumin Level 4.2 g/dL (3.5-5.0); Alkaline Phosphatase 111 U/L (39-117); Anion Gap 11 (12-20); Aspartate Amino Transferase 13 U/L (5-31); Bilirubin Total 1.2 mg/dL (0.0-1.0); Blood Urea Nitrogen 17 mg/dL (9-16); C Reactive Protein 0.26 mg/dL (< or = 0.50); Calcium 9.4 mg/dL (8.4-10.2); Carbon Dioxide 28 mmol/L (22-29); Chloride 104 mmol/L (96-108); Cholesterol 152 mg/dL (<200); Creatinine Clr Calc Pharmacy 123.2; Estimated Glomerular Filt Rate > 60; Glucose Random 70 mg/dL (60-115); HDL Cholesterol 59 mg/dL (>40); Iron 75 mcg/dL (30-160); LDL Cholesterol Calculated 83 mg/dL (<100); Percent Iron Saturation 25 % (15-50); Potassium 3.5 mmol/L (3.3-5.1); Sodium 139 mmol/L (135-145); Total Iron Binding Capacity 302 mcg/dL (228-428); Total Protein 7.7 g/dL (6.5-8.0); Triglycerides 50 mg/dL (<150); Unsaturated Iron Binding 227 ug/dL
[2023-08-30 16:10] LABS: Ferritin 53 ng/mL (10-250); TSH reflex Free T4 1.52 uIU/mL (0.32-4.0); Vitamin D 25-OH Total 18.3 ng/mL (>30)
[2023-08-30 16:15] LABS: Vitamin B12 357 pg/mL (200-900)
[2023-09-03] VITALS (14 sets, daily range): BP systolic 108–138; BP diastolic 60–82; PULSE 67–92; RESP 14–18; TEMP 36.7–37.1; O2SAT 93–99
--- NOTE | 2023-09-03 10:38 | W.MHC.F2F ---
Service Date Service Date: 09/03/23 Encounter Date of encounter: 09/03/23 Reasons for Services Signs and symptoms assessed: s/p panniculectomy Reason for senior care: wound care (wound care and drain care) Homebound: Leaving the home is medically contraindicated at this time without the asist of a device and/or another person due th the listed conditions above and below. Reason homebound: unable to drive Certification: Based on the above findings, I certify that this patient is confined to the home and needs intermittent senior care care, physical therapy and/or speech therapy, or continues to need occupational therapy. The patient is under my care, and I have initiated the establishment of the plan of care. The patient will be followed by a physician who will periodically review the plan of care. Time Spent With Patient Time: Total time managing care of this patient today __15__ minutes.
[2023-09-03 12:13] LABS: Zinc 72 mcg/dL (60-130)
--- NOTE | 2023-09-03 12:20 | P.CONAN_ITS ---
HPI - Anesthesia Eval Consult details Narrative: 42 yo female patient for Panniculectomy PMFSH Active Problems Active Problems: All Active Problems Vitamin D deficiency (Acute) Postgastrectomy malabsorption (Acute) Excess skin (Acute) S/P laparoscopic cholecystectomy (Acute) Abdominal pain (Acute) Elevated liver enzymes (Acute) Overweight (BMI 25.0-29.9) (Acute) Obesity (BMI 30-39.9) (Acute) Congenital intra-abdominal adhesions (Acute) Liver fibrosis (Acute) Steatosis, liver (Acute) Morbid obesity (Acute) S/P laparoscopic sleeve gastrectomy (Acute) Past Medical History Medical History History of COVID-19 BMI 38.0-38.9,adult Obese Vitamin B12 deficiency Adjustment disorder Family History Family History Mother No problems noted. Father No problems noted. Brother No problems noted. Brother No problems noted. Sister No problems noted. Sister No problems noted. Sister No problems noted. Sister No problems noted. Sister Breast cancer Daughter No problems noted. Daughter No problems noted. Daughter No problems noted. Daughter No problems noted. Son No problems noted. Family history of problems with anesthesia: No Surgical History Surgical History Hx laparoscopic cholecystectomy S/P laparoscopic sleeve gastrectomy Hx of tubal ligation History of Problems with Anesthesia: No Social History Social History Household Members: Spouse and Family Housing: House Do you presently have visiting nurse or other home services: No Alcohol intake: never Patient Tobacco Use Status: Never used Tobacco Second Hand Smoke Exposure: No Use of substances other than those prescribed or required for medical reasons: No Have you been hit, kicked, punched, or otherwise hurt by someone within the past year? If so, by whom?: No Are you DNR?: No Advance Directives: No Advance Directives Information Provided: Yes Advance Directives on File: No Recently lost weight without trying: No Patient : No FDLMP: 2 months ago : No Poor oral hygiene: No service: No Current occupational status: employed Meds Allergies Allergy/AdvReac Type Severity Reaction Status Date / Time No Known Allergies Allergy Verified 09/03/23 10:14 Active Medications: Current Medications Fentanyl (Fentanyl Citrate/Pf 100 Mcg/2 Ml Vial) 25 mcg IVPUSH Q5M PRN; Protocol PRN Reason: Pain, Moderate(Pain Scale 4-6) Stop: 09/03/23 18:07 Haloperidol Lactate (Haloperidol Lactate 5 Mg/Ml Vial) 1 mg IVPUSH ONCE PRN PRN Reason: Nausea and Vomiting Hydromorphone HCl (Hydromorphone Hcl 0.5 Mg/0.5 Ml Syringe) 0.25 mg IVPUSH Q5M PRN; Protocol PRN Reason: Pain, Severe (Pain Scale 7-10) Stop: 09/03/23 18:08 Lactated Ringer's (Lr) 1,000 mls @ 100 mls/hr IVCONT .Q10H RODGER Acetaminophen (Ofirmev) 1,000 mg in 100 mls @ 400 mls/hr IV PREOP ONE Stop: 09/03/23 12:20 Ondansetron HCl (Ondansetron Hcl 4 Mg/2 Ml Vial) 4 mg IVPUSH ONCE PRN PRN Reason: Nausea and Vomiting Stop: 09/03/23 18:08 Home Medications ?Medication ?Instructions ?Recorded ?Confirmed ?Last Taken ?Type calcium carbonate 600 mg calcium 600 mg PO DAILY 12/25/22 09/03/23 09/03/23 History (1,500 mg) tablet (Calcium) multivitamin 1 tab PO DAILY 12/25/22 09/03/23 09/03/23 History Exam Height,Weight and Vital Signs: Height 5 ft 6 in Weight 77.111 kg Last Vital Signs Temp 98.1 F 09/03/23 10:25 Pulse 80 09/03/23 10:25 Resp 16 09/03/23 10:25 BP 120/63 09/03/23 10:25 Pulse Ox 98 09/03/23 10:25 O2 Del Method Room Air 09/03/23 10:25 Pertinent Lab Results Pertinent Lab Results: Laboratory Tests 08/30/23 08/30/23 13:46 13:54 WBC 5.7 RBC 4.55 Hgb 12.1 Hct 37.6 MCV 82.6 MCH 26.6 L MCHC 32.2 RDW 12.8 Plt Count 223 MPV 9.2 L Immature Gran % (Auto) 0.2 Neut % (Auto) 50.8 Lymph % (Auto) 38.2 [place] % (Auto) 9.1 Eos % (Auto) 1.2 Baso % (Auto) 0.5 Lymph # (Auto) 2.2 [place] # (Auto) 0.5 Eos # (Auto) 0.1 Baso # (Auto) 0.0 Abs Immat Gran (auto) 0.01 Absolute Neuts (auto) 2.9 Absolute Nucleated RBC 0.000 Nucleated RBC % (auto) 0.0 PT 12.5 INR 1.0 APTT 37.2 H Sodium 139 Potassium 3.5 Chloride 104 Carbon Dioxide 28 Anion Gap 11 L BUN 17 H Creatinine 0.63 Estim Creat Clear Calc 123.2 Estimated GFR > 60 Random Glucose 70 Estimat Average Glucose 100 Hemoglobin A1c % 5.1 Calcium 9.4 Iron 75 TIBC 302 % Saturation 25 Unsat Iron Binding 227 Ferritin 53 Total Bilirubin 1.2 H AST 13 ALT 9 Alkaline Phosphatase 111 C-Reactive Protein 0.26 Total Protein 7.7 Albumin 4.2 Triglycerides 50 Cholesterol 152 LDL Cholesterol, Calc 83 HDL Cholesterol 59 Vitamin B12 357 25-OH Vitamin D Total 18.3 L TSH 1.52 Zinc 72 Blood Type O Positive Antibody Screen NEGATIVE Airway Mallampati Class: II TM Dist: >3cm Neck ROM: Full Loose/Missing/Broken Teeth: No Heart: RRR Lungs: CTAB Assessment and Plan Assessment Anesthesia Assessment: Anesthesia Plan Discussed and Chart Reviewed Final Anesthetic Review Family History of Problems with Anesthesia: No History of Problems with Anesthesia: No NPO: Yes ASA Class: II Final Preanesthetic Review: No Changes in Pt Med Stat, Meds/Allgs Chart Reviewed, Consent Obtained/Reviewed and Anes Risks/Benef Reviewed Patient Risk: Intermediate Procedure Risk: Intermediate Assessment/Block/Sedation in SS: Assess/Block/Sedation- Anesthetic Plan Anesthetic Plan: GA Disposition: Standard PACU
--- NOTE | 2023-09-03 12:42 | MHC.SHP ---
Pre-Procedural Eval Section A - 24 Hr Update-Section A only Date of Service: 09/03/23 The patient is an INPATIENT: No The patient has been examined within 24 hours of the surgical procedure. The History & Physical has been completed within 30 days and I have reviewed it.: Yes Section B - Complete if H&P > 30 days Chief Complaint: Excessive and redundant skin and subcutaneous tiss Relevant Family History (Specify if Yes): No Relevant Social History: None Present Medications: None Medical History: No relevant PMH History of Previous Operations: Relevant previous surgery/procedure and date(s) (laparoscopic sleeve gastrectomy) Allergies: Allergies Allergy/AdvReac Type Severity Reaction Status Date / Time No Known Allergies Allergy Verified 09/03/23 10:14 Review of Systems Sugical H&P ROS: Negative: Constitution, Cardiovascular, Respiratory, Neurological, Psychiatric, Hem-Onc, Allergic/Immunologic, Gastrointestinal, Genitourinary, Musculoskeletal, Integumentary, Endocrine and Eyes/Ears/Nose/Throat Exam Surgical H&P Exam: Normal: HEENT, Normal: Heart, Normal: Lungs, Normal: Extremities, Normal: Abdomen, Normal: Skin and Normal: Neurological Plan Diagnosis/Plan: Unchanged I have reviewed the history and physical and performed a pertinent physical examination on my patient. No changes have occurred unless specified. Time Spent With Patient Time: Total time managing care of this patient today ____ minutes.
--- NOTE | 2023-09-03 13:07 | PM.OP ---
Brief Operative Note Date of Service: 09/03/23 Pre-op diagnosis: Excess skin Post-op diagnosis: same Procedure: PROCEDURE: Panniculectomy with umbilical transposition and bilateral subcutaneous fat flaps INDICATION: This a 42 year old female who underwent laparoscopic sleeve gastrectomy on 01/16/2022. She had an excellent result achieving a BMI of 27.4 kg/m2 with a total weight loss of 91.6lbs, or 35.07% of her TBWL. As a result, she has developed panniculitis which has not resolved despite continuous use of clotrimazole ointment as well as skin irritation. On exam she has extreme skin laxity due to massive weight loss, with the abdominal pannus completely hanging 4cm below the pubis. Panniculectomy was recommended. We discussed the two options for the panniculectomy of using a combined vertical and horizontal incisions or just a horizontal (bikini) incision. It was my recommendation to do only horizontal incision based on her body habitus and skin laxity. The patient agreed with this. Risks and complications were discussed with the patient including bleeding, infection, umbilical loss, flap necrosis, asymmetry, dehiscence, seroma, VTE. The patient understood the risks and was in agreement to proceed with surgery. PROCEDURE: The incisions were appropriately marked at the preop area with the patient standing and laying down. After induction of general anesthesia a Lara catheter and pneumatic compression devices were placed. The patient was prepped and draped in the usual sterile manner and the incisions were marked again and confirmed. The skin was infiltrated with lidocaine and epinephrine. The #10 blade scalpel was used for the large incisions and the #15 blade scalpel for the umbilicus. Cautery was used to divide the subcutaneous tissues until the fascia was identified. Then I used the cautery to separate the pannus from the fascia. The inferior incision was made initially and I mobilized the flap for a several centimeters cephalad to the umbilicus. The umbilicus was incised circumferentially and detached from the surrounding tissues all the way to the fascia while its stalk was preserved. With the patient in reflex position I confirmed that the skin flaps were appropriate and would allow for the tissues to come together with reasonable tension. At that point a horizontal incision was made 4 cm above the umbilicus. #10 blade was used for the skin, cautery for the dermis and for the remaining tissues. A subcutaneous fat flap was raised from the upper skin flap in order to fill the space under the skin and support the closure of the two flaps. In addition the inferior flap was mobilized caudally for a few centimeters to create a space for the subcutaneous fat flap as well as relieve tension from the closure. A circumferential incision was made at the area where the umbilicus would be re-implanted. The umbilicus was appropriately oriented and was delivered through the defect and was secured in place with a Smitha. No bleeding was noted anywhere. One THO drain was placed from the left corner of the horizontal incision across the wound and was secured in place with a silk suture. A total of 7ml of Zynrelef was applied on top of the fascia and under the subcutaneous fat flaps. The subcutaneous fat flap was secured under the inferior flap with several interrupted 3.0 Monocryl sutures. The two flaps were brought together and were attached at the midline of the horizontal incision with a #3.0 Monocryl suture. At that point the umbilicus was properly oriented and was re-approximated to the skin with 8 interrupted 3.0 Monocryl sutures. In a similar fashion the skin flaps were re-approximated with multiple 3.0 Monocryl sutures. The skin was closed in all incisions and umbilicus with 4.0 Monocryl sutures. Steri-strips, xeroform gauzes and gauzes were used to cover the incisions. An abdominal binder was also placed. The was awaken and was transferred to the recover room in a stable condition. I was present and performed the entire procedure. Luis Tran was the family and divorce legal assistant. Hector Lechuga MD, PhD, FACS Surgeon: Aubrey Lechuga MD Surgeon: Aubrey Lechuga MD Anesthesia: GETA, local and other (7ml Zynrelef) Was an X Ray Service Engineer used for this Procedure?: No X Ray Service Engineer: Jazmyn Tran Estimated blood loss (mL): 10 IV fluids (mL): 1,400 Urine output (mL): 300 Pathology: other (abdominal pannus) Condition: stable Disposition: PACU
[2023-09-03] MEDS: HYDROmorphone HCl 0.5 MG/0.5 ML SYRINGE 0.25 MG IVPUSH ×2 (17:55→18:00)
[2023-09-03] MEDS: Haloperidol Lactate 5 MG/ML VIAL 1 MG IVPUSH (17:56)
[2023-09-04 05:58] LABS: Vitamin A 27 mcg/dL (38-98)
[2023-09-05 16:28] LABS: Vitamin B1 7 nmol/L (8-30)
== END 2023-09-03 19:41 | disposition home or self-care (01) ==
PROVIDERS: PCP Internal Medicine; Visit Provider Surgery
PROC: 0JB80ZZ Excision of Abdomen Subcutaneous Tissue and Fascia, Open Approach (ICD-10-PCS; CPT 15830; principal; 2023-09-03 11:50)
DX: L98.7 Excessive and redundant skin and subcutaneous tissue (principal); L24.9 Irritant contact dermatitis, unspecified cause; M79.3 Panniculitis, unspecified; E65 Localized adiposity; K91.2 Postsurgical malabsorption, not elsewhere classified; Z90.3 Acquired absence of stomach [part of]; E66.9 Obesity, unspecified; Z68.27 Body mass index [BMI] 27.0-27.9, adult; F43.20 Adjustment disorder, unspecified; K59.00 Constipation, unspecified; E53.8 Deficiency of other specified B group vitamins; Z79.899 Other long term (current) drug therapy; Z90.49 Acquired absence of other specified parts of digestive tract; Z98.51 Tubal ligation status; Z86.16 Personal history of COVID-19
CPT/HCPCS: 15830; 15847; 36415; 80053; 80061; 82306; 82607; 82728; 83036; 83540; 84425; 84443; 84590; 84630; 85025; 85610; 85730; 86140; 86850; 86900; 86901; 88304; C9088; J0131; J0690; J1100; J1170; J1630; J2250; J2405; J2704; J3010; J3370

== ENCOUNTER → 2023-09-03 09:26 | Outpatient (BNV) | payer OTHER, SELFPAY | PROVIDERS: PCP Internal Medicine; Visit Provider Physician Assistant Surgical | DX: L98.7 Excessive and redundant skin and subcutaneous tissue (principal); Z90.3 Acquired absence of stomach [part of]; Z98.84 Bariatric surgery status | CPT/HCPCS: 15830 ==

== ENCOUNTER 2023-09-10 09:04 | Outpatient (AMB) | payer OTHER, SELFPAY ==
--- NOTE | 2023-09-10 09:10 | MHC.OFFVISWM ---
VS Expanded 09/10/23 09:20 BP 131/70 Blood Pressure Location Rt brachial Blood Pressure Position Sitting Pulse 66 Pulse Source Pulse Oximeter Temp 97.7 F Temperature Source Temporal Artery Scan Pulse Oximetry 100 Oxygen Delivery Method Room Air Intake Visit Reasons: (OV) PO Panniculectomy 09/03/23 Allergies No Known Allergies Allergy (Verified 09/10/23 09:21) HPI Comments Details: Patient is a pleasant 42-year-old female who returns to the office today in follow-up. She underwent panniculectomy on 09/03/2023. She reports between 40 and 50 mL of serosanguineous fluid from the collection bulb on a daily basis. She continues antibiotics and meal plan as directed by Dr. Lechuga. She denies any significant complaints at today's visit. [facility] Medical History History of COVID-19 BMI 38.0-38.9,adult Obese Vitamin B12 deficiency Adjustment disorder Surgical History Hx laparoscopic cholecystectomy S/P laparoscopic sleeve gastrectomy Hx of tubal ligation Family History Mother No problems noted. Father No problems noted. Brother No problems noted. Brother No problems noted. Sister No problems noted. Sister No problems noted. Sister No problems noted. Sister No problems noted. Sister Breast cancer Daughter No problems noted. Daughter No problems noted. Daughter No problems noted. Daughter No problems noted. Son No problems noted. Social History Household Members: Spouse and Family Housing: House Do you presently have visiting nurse or other home services: No 75 years or older and lives alone: No Alcohol intake: never Patient Tobacco Use Status: Never used Tobacco Second Hand Smoke Exposure: No service: No Current occupational status: employed Physical Exam Vital Signs: Last Vital Signs Temp 97.7 F 09/10/23 09:20 Pulse 66 09/10/23 09:20 BP 131/70 09/10/23 09:20 Pulse Ox 100 09/10/23 09:20 Oxygen Delivery Method Room Air 09/10/23 09:20 Skin Other: Transverse incision is clean, dry, intact. No evidence of dehiscence or infection. Umbilicus is viable with incision healing nicely. Assessment & Plan Assessment & Plan (1) S/P panniculectomy: Code(s): Z98.890 - Other specified postprocedural states Category: Surgical Plan: Status post panniculectomy on 09/03/2023. Patient is healing well. She continues to monitor drain output and will do so. Continue to wear abdominal binder. Continue antibiotics. Continue meal plan. Return to the office in 1 week.
[2023-09-10 09:20] VITALS: BP 131/70; PULSE 66; TEMP 36.5; O2SAT 100
== END 2023-09-10 09:37 | disposition home or self-care (01) ==
PROVIDERS: PCP Internal Medicine; Visit Provider Physician Assistant Surgical
DX: Z98.890 Other specified postprocedural states (principal)
CPT/HCPCS: 99024

== ENCOUNTER → 2023-09-10 09:04 | Outpatient (BNVA) | payer OTHER, SELFPAY | PROVIDERS: PCP Internal Medicine; Visit Provider Physician Assistant Surgical | DX: E66.9 Obesity, unspecified (principal); Z68.38 Body mass index [BMI] 38.0-38.9, adult; Z48.817 Encounter for surgical aftercare following surgery on the skin and subcutaneous tissue | CPT/HCPCS: 99212 ==

== ENCOUNTER 2023-09-17 11:53 | Outpatient (AMB) | payer OTHER, SELFPAY ==
--- NOTE | 2023-09-17 12:04 | A.OFFVIS_ITS ---
VS Expanded 09/17/23 12:11 BP 122/56 L Blood Pressure Location Rt brachial Blood Pressure Position Sitting Pulse 70 Pulse Source Pulse Oximeter Temp 96.8 F Temperature Source Tympanic Pulse Oximetry 100 Oxygen Delivery Method Room Air Intake Visit Reasons: (OV) PO Panniculectomy 09/03/23 Allergies No Known Allergies Allergy (Verified 09/17/23 12:12) HPI Comments Details: Patient is a pleasant 42-year-old female who returns to the office today in follow-up. She is status post panniculectomy performed on 09/03/2023. She continues taking her oral antibiotics. She continues following the meal plan as directed by Dr. Lechuga. She offers no significant complaints at today's visit. She has been monitoring her drain output, it is now down to approximately 40 mL of serosanguineous fluid per day. ON LICENSE OF [facility] Medical History History of COVID-19 BMI 38.0-38.9,adult Obese Vitamin B12 deficiency Adjustment disorder Surgical History Hx laparoscopic cholecystectomy S/P laparoscopic sleeve gastrectomy Hx of tubal ligation Family History Mother No problems noted. Father No problems noted. Brother No problems noted. Brother No problems noted. Sister No problems noted. Sister No problems noted. Sister No problems noted. Sister No problems noted. Sister Breast cancer Daughter No problems noted. Daughter No problems noted. Daughter No problems noted. Daughter No problems noted. Son No problems noted. Social History Household Members: Spouse and Family Housing: House Do you presently have visiting nurse or other home services: No 75 years or older and lives alone: No Alcohol intake: never Patient Tobacco Use Status: Never used Tobacco Second Hand Smoke Exposure: No service: No Current occupational status: employed Physical Exam Vital Signs: Last Vital Signs Temp 96.8 F 09/17/23 12:11 Pulse 70 09/17/23 12:11 BP 122/56 L 09/17/23 12:11 Pulse Ox 100 09/17/23 12:11 Oxygen Delivery Method Room Air 09/17/23 12:11 Skin Other: Transverse abdominal incision and umbilical incision healing nicely. No evidence of dehiscence or infection. Assessment & Plan Assessment & Plan (1) S/P panniculectomy: Code(s): Z98.890 - Other specified postprocedural states Category: Surgical Plan: Continue current treatment plans including daily dressing care, monitoring drain output. Continue oral antibiotics and meal plan. Return to clinic 1 week.
[2023-09-17 12:11] VITALS: BP 122/56; PULSE 70; TEMP 36; O2SAT 100
== END 2023-09-17 12:26 | disposition home or self-care (01) ==
PROVIDERS: PCP Internal Medicine; Visit Provider Physician Assistant Surgical
DX: Z98.890 Other specified postprocedural states (principal)
CPT/HCPCS: 99024

== ENCOUNTER → 2023-09-17 11:53 | Outpatient (BNVA) | payer OTHER, SELFPAY | PROVIDERS: PCP Internal Medicine; Visit Provider Physician Assistant Surgical | DX: Z98.890 Other specified postprocedural states (principal) | CPT/HCPCS: 99212 ==

== ENCOUNTER 2023-09-27 12:33 | Outpatient (AMB) | payer OTHER, SELFPAY ==
--- NOTE | 2023-09-27 12:33 | A.OFFVIS_ITS ---
VS Expanded 09/27/23 12:40 BP 122/69 Blood Pressure Location Rt brachial Blood Pressure Position Sitting Pulse 70 Pulse Source Pulse Oximeter Temp 96.8 F Temperature Source Tympanic Pulse Oximetry 100 Oxygen Delivery Method Room Air Intake Visit Reasons: (OV) PO Panniculectomy 09/03/23 Allergies No Known Allergies Allergy (Verified 09/27/23 12:41) HPI Comments Details: 42-year-old female returns to the office today in follow-up. She is status post panniculectomy performed on 09/03/2023. She reports approximately 20-30 mL of serosanguineous fluid daily. She denies any significant pain. She continues the antibiotics. She continues to follow the meal plan as directed by Dr. Lechuga. She denies any complaints. [facility] Medical History History of COVID-19 BMI 38.0-38.9,adult Obese Vitamin B12 deficiency Adjustment disorder Surgical History Hx laparoscopic cholecystectomy S/P laparoscopic sleeve gastrectomy Hx of tubal ligation Family History Mother No problems noted. Father No problems noted. Brother No problems noted. Brother No problems noted. Sister No problems noted. Sister No problems noted. Sister No problems noted. Sister No problems noted. Sister Breast cancer Daughter No problems noted. Daughter No problems noted. Daughter No problems noted. Daughter No problems noted. Son No problems noted. Social History Household Members: Spouse and Family Housing: House Do you presently have visiting nurse or other home services: No 75 years or older and lives alone: No Alcohol intake: never Patient Tobacco Use Status: Never used Tobacco Second Hand Smoke Exposure: No service: No Current occupational status: employed Physical Exam Skin Other: Transverse incision is healing very very well. Umbilicus is viable and healing nicely. Assessment & Plan Assessment & Plan (1) S/P panniculectomy: Code(s): Z98.890 - Other specified postprocedural states Category: Surgical Plan: Continue current antibiotics, meal plan, dressing changes, monitoring drain output. Consideration for discontinuance of the drain next week if she continues with decreasing fluid output. She may walk outside with her abdominal binder on at all times.
[2023-09-27 12:40] VITALS: BP 122/69; PULSE 70; TEMP 36; O2SAT 100
== END 2023-09-27 13:00 | disposition home or self-care (01) ==
PROVIDERS: PCP Internal Medicine; Visit Provider Physician Assistant Surgical
DX: Z48.89 Encounter for other specified surgical aftercare (principal)
CPT/HCPCS: 99024

== ENCOUNTER → 2023-09-27 12:33 | Outpatient (BNVA) | payer OTHER, SELFPAY | PROVIDERS: PCP Internal Medicine; Visit Provider Physician Assistant Surgical | DX: Z48.89 Encounter for other specified surgical aftercare (principal) | CPT/HCPCS: 99212 ==

== ENCOUNTER 2023-10-04 10:23 | Outpatient (AMB) | payer OTHER, SELFPAY ==
[2023-10-04 10:32] VITALS: BP 118/61; PULSE 74; TEMP 36.5; O2SAT 100
--- NOTE | 2023-10-04 10:32 | MHC.OFFVISWM ---
VS Expanded 10/04/23 10:32 BP 118/61 Blood Pressure Location Rt brachial Blood Pressure Position Sitting Pulse 74 Pulse Source Pulse Oximeter Temp 97.7 F Temperature Source Temporal Artery Scan Pulse Oximetry 100 Oxygen Delivery Method Room Air Intake Visit Reasons: (OV) PO Panniculectomy 09/03/23 Allergies No Known Allergies Allergy (Verified 10/04/23 10:32) HPI Comments Details: Patient is a very pleasant 42-year-old female who returns to the office today in follow-up. She is approximately 4 weeks out of panniculectomy performed on 09/03/2023. She states she is having approximately 20 mL of serous fluid from the collection bulb daily. She continues antibiotics and meal plan as prescribed by Dr. Lechuga. She denies any significant pain. [facility] Medical History History of COVID-19 BMI 38.0-38.9,adult Obese Vitamin B12 deficiency Adjustment disorder Surgical History (Updated 10/04/23 @ 10:33 by Bertha Bloom CMA) S/P panniculectomy Hx laparoscopic cholecystectomy S/P laparoscopic sleeve gastrectomy Hx of tubal ligation Family History Mother No problems noted. Father No problems noted. Brother No problems noted. Brother No problems noted. Sister No problems noted. Sister No problems noted. Sister No problems noted. Sister No problems noted. Sister Breast cancer Daughter No problems noted. Daughter No problems noted. Daughter No problems noted. Daughter No problems noted. Son No problems noted. Social History Household Members: Spouse and Family Housing: House Do you presently have visiting nurse or other home services: No 75 years or older and lives alone: No Alcohol intake: never Patient Tobacco Use Status: Never used Tobacco Second Hand Smoke Exposure: No service: No Current occupational status: employed Physical Exam Vital Signs: Last Vital Signs Temp 97.7 F 10/04/23 10:32 Pulse 74 10/04/23 10:32 BP 118/61 10/04/23 10:32 Pulse Ox 100 10/04/23 10:32 Oxygen Delivery Method Room Air 10/04/23 10:32 Skin Other: Transverse abdominal incision and umbilical incisions are healing nicely. Umbilicus is viable. No evidence of infection or dehiscence. Assessment & Plan Assessment & Plan (1) S/P panniculectomy: Code(s): Z98.890 - Other specified postprocedural states Category: Surgical Plan: Continue to monitor drain output. Continue with plans regarding meal plan. Continue antibiotics. Likely discontinue drain next week. Call with any questions or concerns.
== END 2023-10-04 10:44 | disposition home or self-care (01) ==
PROVIDERS: PCP Internal Medicine; Visit Provider Physician Assistant Surgical
DX: Z98.890 Other specified postprocedural states (principal)
CPT/HCPCS: 99024

== ENCOUNTER → 2023-10-04 10:23 | Outpatient (BNVA) | payer OTHER, SELFPAY | PROVIDERS: PCP Internal Medicine; Visit Provider Physician Assistant Surgical | DX: Z48.817 Encounter for surgical aftercare following surgery on the skin and subcutaneous tissue (principal); Z98.890 Other specified postprocedural states | CPT/HCPCS: 99212 ==

== ENCOUNTER 2023-10-11 09:59 | Outpatient (AMB) | payer OTHER, SELFPAY ==
--- NOTE | 2023-10-11 10:10 | MHC.OFFVISWM ---
VS Expanded 10/11/23 10:20 BP 116/57 L Blood Pressure Location Rt brachial Blood Pressure Position Sitting Pulse 67 Pulse Source Pulse Oximeter Temp 97.0 F Temperature Source Temporal Artery Scan Pulse Oximetry 100 Oxygen Delivery Method Room Air Intake Visit Reasons: (OV) PO Panniculectomy 09/03/23 Allergies No Known Allergies Allergy (Verified 10/11/23 10:21) HPI Comments Details: 42-year-old female returns to the office today in follow-up. She is status post panniculectomy performed on 09/03/2023. She reports approximately 10 mL of serous fluid from the collection bulb daily over the last 7 days. She denies any significant pain. She continues the meal plan and antibiotics. [facility] Medical History History of COVID-19 BMI 38.0-38.9,adult Obese Vitamin B12 deficiency Adjustment disorder Surgical History S/P panniculectomy Hx laparoscopic cholecystectomy S/P laparoscopic sleeve gastrectomy Hx of tubal ligation Family History Mother No problems noted. Father No problems noted. Brother No problems noted. Brother No problems noted. Sister No problems noted. Sister No problems noted. Sister No problems noted. Sister No problems noted. Sister Breast cancer Daughter No problems noted. Daughter No problems noted. Daughter No problems noted. Daughter No problems noted. Son No problems noted. Social History Household Members: Spouse and Family Housing: House Do you presently have visiting nurse or other home services: No 75 years or older and lives alone: No Alcohol intake: never Patient Tobacco Use Status: Never used Tobacco Second Hand Smoke Exposure: No service: No Current occupational status: employed Physical Exam Vital Signs: Last Vital Signs Temp 97.0 F 10/11/23 10:20 Pulse 67 10/11/23 10:20 BP 116/57 L 10/11/23 10:20 Pulse Ox 100 10/11/23 10:20 Oxygen Delivery Method Room Air 10/11/23 10:20 Skin Other: Transverse and umbilical incisions look well without any evidence of dehiscence or infection. Assessment & Plan Assessment & Plan (1) S/P panniculectomy: Code(s): Z98.890 - Other specified postprocedural states Category: Surgical Plan: Drain has been removed. She may shower in 48 hours Continue to wear abdominal binder Continue antibiotics for 2 more weeks. Continue meal plan as directed by Dr. Lechuga. Return to clinic 2 weeks.
[2023-10-11 10:20] VITALS: BP 116/57; PULSE 67; TEMP 36.1; O2SAT 100
== END 2023-10-11 10:24 | disposition home or self-care (01) ==
PROVIDERS: PCP Internal Medicine; Visit Provider Physician Assistant Surgical
DX: Z98.890 Other specified postprocedural states (principal)
CPT/HCPCS: 99024

== ENCOUNTER → 2023-10-11 09:59 | Outpatient (BNVA) | payer OTHER, SELFPAY | PROVIDERS: PCP Internal Medicine; Visit Provider Physician Assistant Surgical | DX: Z48.817 Encounter for surgical aftercare following surgery on the skin and subcutaneous tissue (principal); Z98.890 Other specified postprocedural states | CPT/HCPCS: 99212 ==

== ENCOUNTER 2023-10-25 13:30 | Outpatient (AMB) | payer OTHER, SELFPAY ==
--- NOTE | 2023-10-25 13:32 | MHC.OFFVISWM ---
VS Expanded 10/25/23 13:35 BP 125/58 L Blood Pressure Location Rt brachial Blood Pressure Position Sitting Pulse 68 Pulse Source Pulse Oximeter Temp 96.5 F L Temperature Source Tympanic Pulse Oximetry 100 Oxygen Delivery Method Room Air Intake Visit Reasons: (OV) PO Panniculectomy 09/03/23 Allergies No Known Allergies Allergy (Verified 10/25/23 13:36) HPI Comments Details: Pleasant 43-year-old female returns to the office today in follow-up. She is status post panniculectomy on 09/03/2023. She reports continued use of abdominal binder. She is walking outside. She has continuing the meal plan. She denies any pain. She is very happy with the results of her procedure. [facility] Medical History History of COVID-19 BMI 38.0-38.9,adult Obese Vitamin B12 deficiency Adjustment disorder Surgical History S/P panniculectomy Hx laparoscopic cholecystectomy S/P laparoscopic sleeve gastrectomy Hx of tubal ligation Family History Mother No problems noted. Father No problems noted. Brother No problems noted. Brother No problems noted. Sister No problems noted. Sister No problems noted. Sister No problems noted. Sister No problems noted. Sister Breast cancer Daughter No problems noted. Daughter No problems noted. Daughter No problems noted. Daughter No problems noted. Son No problems noted. Social History Household Members: Spouse and Family Housing: House Do you presently have visiting nurse or other home services: No 75 years or older and lives alone: No Alcohol intake: never Patient Tobacco Use Status: Never used Tobacco Second Hand Smoke Exposure: No service: No Current occupational status: employed Physical Exam Vital Signs: Last Vital Signs Temp 96.5 F L 10/25/23 13:35 Pulse 68 10/25/23 13:35 BP 125/58 L 10/25/23 13:35 Pulse Ox 100 10/25/23 13:35 Oxygen Delivery Method Room Air 10/25/23 13:35 Skin Other: Transverse abdominal incision has healed very nicely. No evidence of dehiscence or infection. Umbilicus has also healed nicely and is viable. Assessment & Plan Assessment & Plan (1) S/P panniculectomy: Code(s): Z98.890 - Other specified postprocedural states Category: Surgical Plan: Continue meal plan as directed by Dr. Lechuga. Continue abdominal binder. Continue walking outside, may resume light treadmill work on November 02. We will have her return to the office in mid November.
[2023-10-25 13:35] VITALS: BP 125/58; PULSE 68; TEMP 35.8; O2SAT 100
== END 2023-10-25 13:53 | disposition home or self-care (01) ==
PROVIDERS: PCP Internal Medicine; Visit Provider Physician Assistant Surgical
DX: Z98.84 Bariatric surgery status (principal); Z48.89 Encounter for other specified surgical aftercare
CPT/HCPCS: 99024

== ENCOUNTER → 2023-10-25 13:30 | Outpatient (BNVA) | payer OTHER, SELFPAY | PROVIDERS: PCP Internal Medicine; Visit Provider Physician Assistant Surgical | DX: E66.9 Obesity, unspecified (principal); E53.8 Deficiency of other specified B group vitamins; Z68.38 Body mass index [BMI] 38.0-38.9, adult; Z48.817 Encounter for surgical aftercare following surgery on the skin and subcutaneous tissue; Z90.49 Acquired absence of other specified parts of digestive tract; Z90.3 Acquired absence of stomach [part of] | CPT/HCPCS: 99212 ==

== ENCOUNTER 2023-12-10 09:58 | Outpatient (AMB) | payer OTHER, SELFPAY ==
--- NOTE | 2023-12-10 10:04 | A.OFFVIS_ITS ---
VS Expanded 12/10/23 10:11 BP 154/67 H Blood Pressure Location Rt brachial Blood Pressure Position Sitting Pulse 76 Pulse Source Pulse Oximeter Temp 96.7 F L Temperature Source Tympanic Pulse Oximetry 99 Oxygen Delivery Method Room Air Height 5 ft 6 in Weight 177 lb 9.6 oz BMI 28.7 Body Fat % 38.4 Body Fat Mass 68.2 Fat Free Mass 109.4 Visceral Fat Rating 7.0 Body Water % 44.0 Body Water Mass 78.0 Muscle Mass/Score 103.8 Basal Metabolic Rate/Score 1,510 Intake Visit Reasons: (OV) PO Panniculectomy 09/03/23 Allergies No Known Allergies Allergy (Verified 12/10/23 10:13) HPI Comments Details: Patient is a very pleasant 43-year-old female who returns to the office today in follow-up. She is approximately 3 months status post panniculectomy performed on 09/03/2023. Weight today is 177.6 lb with a BMI of 28.7. She additionally has a history of laparoscopic cholecystectomy performed by Dr. Nicole on 12/25/2022 and laparoscopic sleeve gastrectomy performed by Dr. Lechuga on 01/16/2022. She offers no significant complaints at today's visit and overall is very satisfied with the results of her panniculectomy. [facility] Medical History History of COVID-19 BMI 38.0-38.9,adult Obese Vitamin B12 deficiency Adjustment disorder Surgical History S/P panniculectomy Hx laparoscopic cholecystectomy S/P laparoscopic sleeve gastrectomy Hx of tubal ligation Family History Mother No problems noted. Father No problems noted. Brother No problems noted. Brother No problems noted. Sister No problems noted. Sister No problems noted. Sister No problems noted. Sister No problems noted. Sister Breast cancer Daughter No problems noted. Daughter No problems noted. Daughter No problems noted. Daughter No problems noted. Son No problems noted. Social History Household Members: Spouse and Family Housing: House Do you presently have visiting nurse or other home services: No 75 years or older and lives alone: No Alcohol intake: never Patient Tobacco Use Status: Never used Tobacco Second Hand Smoke Exposure: No service: No Current occupational status: employed Physical Exam Vital Signs: Last Vital Signs Temp 96.7 F L 12/10/23 10:11 Pulse 76 12/10/23 10:11 BP 154/67 H 12/10/23 10:11 Pulse Ox 99 12/10/23 10:11 Oxygen Delivery Method Room Air 12/10/23 10:11 BMI result Body Mass Index 28.7 Skin Other: Umbilicus in transverse incision well healed Assessment & Plan Assessment & Plan (1) S/P panniculectomy: Code(s): Z98.890 - Other specified postprocedural states Category: Surgical Plan: May return to work without restrictions. May resume exercise without restrictions although encouraged to resume and increase gradually. Additionall y, she inquired about weight training. 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 Using weights then cardio, she will return to the office in approximately 1 month for her 2 year post sleeve gastrectomy appointment.
[2023-12-10 10:11] VITALS: BP 154/67; PULSE 76; TEMP 35.9; O2SAT 99; BMI 28.7
== END 2023-12-10 10:39 | disposition home or self-care (01) ==
PROVIDERS: PCP Internal Medicine; Visit Provider Physician Assistant Surgical
DX: E66.3 Overweight (principal); Z68.28 Body mass index [BMI] 28.0-28.9, adult; Z98.890 Other specified postprocedural states
CPT/HCPCS: 99213

== ENCOUNTER → 2023-12-10 09:58 | Outpatient (BNVA) | payer OTHER, SELFPAY | PROVIDERS: PCP Internal Medicine; Visit Provider Physician Assistant Surgical | DX: Z48.89 Encounter for other specified surgical aftercare (principal) | CPT/HCPCS: 99212 ==

== ENCOUNTER 2024-03-12 10:57 | Outpatient (AMB) | payer OTHER, SELFPAY ==
--- NOTE | 2024-03-12 11:16 | A.OFFVIS_ITS ---
VS Expanded 03/12/24 11:24 BP 129/70 Blood Pressure Location Rt brachial Blood Pressure Position Sitting Pulse 70 Pulse Source Pulse Oximeter Temp 97.9 F Temperature Source Temporal Artery Scan Pulse Oximetry 99 Oxygen Delivery Method Room Air Height 5 ft 6 in Weight 184 lb 3.2 oz BMI 29.7 Body Fat % 39.3 Body Fat Mass 72.4 Fat Free Mass 111.8 Visceral Fat Rating 8. 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 She is approximately 6 months status post panniculectomy performed on 09/03/2023. Weight today is 184.2 lb with a BMI of 29.7. She additionally has a history of laparoscopic cholecystectomy performed by Dr. Nicole on 12/25/2022 and laparoscopic sleeve gastrectomy performed by Dr. Lechuga on 01/16/2022. She offers no significant complaints at today's visit and overall is very satisfied with the results of her panniculectomy. Meal plan: nothing structured, previously using pure protein coffee 4 cups w cr and sugar and caramel exercise plan: PF 2 x per week: treadmill, 250-300 ivan PFSH Medical History History of COVID-19 BMI 38.0-38.9,adult Obese Vitamin B12 deficiency Adjustment disorder Surgical History S/P panniculectomy Hx laparoscopic cholecystectomy S/P laparoscopic sleeve gastrectomy Hx of tubal ligation Family History Mother No problems noted. Father No problems noted. Brother No problems noted. Brother No problems noted. Sister No problems noted. Sister No problems noted. Sister No problems noted. Sister No problems noted. Sister Breast cancer Daughter No problems noted. Daughter No problems noted. Daughter No problems noted. Daughter No problems noted. Son No problems noted. Social History Household Members: Spouse and Family Housing: House Do you presently have visiting nurse or other home services: No 75 years or older and lives alone: No Alcohol intake: never Patient Tobacco Use Status: Never used Tobacco Second Hand Smoke Exposure: No service: No Current occupational status: employed Assessment & Plan Assessment & Plan (1) Overweight (BMI 25.0-29.9): Code(s): E66.3 - Overweight Category: Medical Plan: Discussed the importance of adhering to a meal plan. Discussed the importance of tracking calories at the gym including going more frequently than twice per week. She was given information regarding the right BMI jason. we will have her return to the office in 1 month. Additionally, discussed texting her weight weekly and with any questions
[2024-03-12 11:24] VITALS: BP 129/70; PULSE 70; TEMP 36.6; O2SAT 99; BMI 29.7
== END 2024-03-12 11:40 | disposition home or self-care (01) ==
PROVIDERS: PCP Internal Medicine; Visit Provider Physician Assistant Surgical
DX: E66.3 Overweight (principal); Z68.29 Body mass index [BMI] 29.0-29.9, adult
CPT/HCPCS: 99213; G2211

== ENCOUNTER → 2024-03-12 10:57 | Outpatient (BNVA) | payer OTHER, SELFPAY | PROVIDERS: PCP Internal Medicine; Visit Provider Physician Assistant Surgical ==